=== PATIENT | female | born 1980 | race Caucasian/White ===

== ENCOUNTER 2018-11-12 00:33 | Emergency (ER) | payer OTHER ==
[~2018-11-12] VITALS: Ht 162.6 cm; Wt 88.6 kg
[2018-11-12 02:12] VITALS: BP 104/56
[2018-11-12 02:32] LABS: URINE AMPHETAMINE SCREEN NEGATIVE (Neg); URINE BARBITUATE SCREEN NEGATIVE (Neg); URINE BENZODIAZEPINES SCREEN POSITIVE (Neg); URINE CANNABINOID SCREEN NEGATIVE (Neg); URINE COCAINE SCREEN NEGATIVE (Neg); URINE METHADONE SCREEN NEGATIVE (Neg); URINE OPIATE SCREEN NEGATIVE (Neg); URINE PHENCYCLIDINE SCREEN NEGATIVE (Neg)
[2018-11-12] MEDS ORDERED: QUEtiapine 25mg tablet PO SCH (08:00)
== END 2018-11-12 03:03 | disposition home or self-care (01) ==
LOC: ER 00:36
DX: R45.4 Irritability and anger (principal); G43.909 Migraine, unspecified, not intractable, without status migrainosus; J45.909 Unspecified asthma, uncomplicated; G89.29 Other chronic pain; F41.9 Anxiety disorder, unspecified; F31.9 Bipolar disorder, unspecified; Z90.49 Acquired absence of other specified parts of digestive tract; Z98.51 Tubal ligation status; Z56.0 Unemployment, unspecified; Z88.0 Allergy status to penicillin; Z88.2 Allergy status to sulfonamides
CPT/HCPCS: 80305; 99284

== ENCOUNTER 2018-11-21 13:53 | Emergency (ER) | payer OTHER ==
[~2018-11-21] VITALS: Ht 162.6 cm; Wt 88.6 kg
[2018-11-21 14:41] LABS: BASOPHILS % (AUTO) 0.3 % (0-1); EOSINOPHILS # (AUTO) 0.2 X10'3 (0-0.9); EOSINOPHILS % (AUTO) 1.5 % (0-6); HEMATOCRIT 45.8 % (35.0-45.0); HEMOGLOBIN 15.1 g/dl (12.0-16.0); LYMPHOCYTES % (AUTO) 21.1 % (21-51); MEAN CORPUSCULAR VOLUME 87.9 FL (78-98); MEAN PLATELET VOLUME 8.1 FL (7.4-10.4); MONOCYTES # (AUTO) 0.7 X10'3 (0-0.9); MONOCYTES % (AUTO) 5.2 % (2-12); NEUTROPHILS # (AUTO) 10.1 X10'3 (1.8-7.7); NEUTROPHILS % (AUTO) 71.9 % (42-75); PLATELET COUNT 459 X10'3 (140-440); RED BLOOD COUNT 5.21 X10'6 (4.20-5.60); RED CELL DISTRIBUTION WIDTH 14.1 % (11.5-14.5); WHITE BLOOD COUNT 14.1 X10'3 (4.5-11.0)
[2018-11-21 14:59] LABS: PARTIAL THROMBOPLASTIN TIME 28 SECONDS (22-32); PROTHROMBIN TIME 10.4 SECONDS (9.0-12.0)
[2018-11-21 15:10] LABS: ALANINE AMINOTRANSFERASE 74 U/L (12-78); ALBUMIN 3.5 G/DL (3.4-5.0); ALBUMIN/GLOBULIN RATIO 0.9 (1.1-1.5); ALKALINE PHOSPHATASE 154 IU/L (46-116); ANION GAP 12 (8-16); ASPARTATE AMINO TRANSFERASE 48 U/L (10-37); BILIRUBIN,TOTAL 0.2 MG/DL (0.1-1.0); BLOOD UREA NITROGEN 12 MG/DL (7-18); BUN/CREATININE RATIO 17.4 (6.6-38.0); CALCIUM 8.5 MG/DL (8.5-10.1); CHLORIDE 103 MMOL/L (99-107); CREATININE 0.69 MG/DL (0.40-0.90); GLUCOSE 102 MG/DL (70-104); POTASSIUM 3.8 MMOL/L (3.5-5.1); SODIUM 139 MMOL/L (135-145); TOTAL CARBON DIOXIDE 23.7 MMOL/L (24-32); TOTAL PROTEIN 7.2 G/DL (6.4-8.2); eGFR > 90 ML/MIN
[2018-11-21] MEDS ORDERED: guaiFENesin/codeine phos 10ml UD oral syrup PO ONE (15:55)
[2018-11-21] MEDS ORDERED: ROBCFL PO (15:57)
[2018-11-21] MEDS ORDERED: BENZ-16 PO (15:57)
[2018-11-21 16:04] VITALS: BP 110/78
== END 2018-11-21 16:10 | disposition home or self-care (01) ==
LOC: ER 13:54
DX: M94.0 Chondrocostal junction syndrome [Tietze] (principal); G43.909 Migraine, unspecified, not intractable, without status migrainosus; J45.909 Unspecified asthma, uncomplicated; G89.29 Other chronic pain; Z90.49 Acquired absence of other specified parts of digestive tract; Z98.51 Tubal ligation status; Z88.0 Allergy status to penicillin; Z88.2 Allergy status to sulfonamides; Z79.899 Other long term (current) drug therapy; Z56.0 Unemployment, unspecified
CPT/HCPCS: 36415; 71045; 80053; 84484; 85025; 85610; 85730; 93005; 99284

== ENCOUNTER 2019-04-14 10:17 | Emergency (ER) | payer MEDICAID, OTHER ==
[~2019-04-14] VITALS: Ht 162.6 cm; Wt 95.9 kg
[~2019-04-14 10:17] MED LIST: PANT-47 PO; PHE12.5T PO
[2019-04-14 10:55] LABS: CLARITY,URINE SLIGHTLY CLOUDY (Clear); COLOR,URINE YELLOW (Yellow); GLUCOSE, URINE NEGATIVE (Neg); KETONES,URINE 15 mg/dl (Neg); LEUKOCYTE ESTERASE ,URINE NEGATIVE (Neg); NITRITES, URINE NEGATIVE (Neg); OCCULT BLOOD,URINE NEGATIVE (Neg); PROTEIN,URINE NEGATIVE (Neg); UROBILINOGEN,URINE 0.2 E.U/dL (0.2-1.0)
[2019-04-14] MEDS ORDERED: LORazepam 2 mg/ml vial IV ONE ×2 (10:55→13:35)
[2019-04-14] MEDS ORDERED: ondansetron/PF 4mg/2ml inj IV ONE (10:55)
[2019-04-14] MEDS ORDERED: normal saline 1000ML IV soln IVB ONE (10:55)
[2019-04-14] MEDS ORDERED: ketorolac trometh. 30mg/ml inj. IV ONE (10:55)
[2019-04-14 10:59] LABS: UA COLLECTION TYPE CLN CATCH MIDSTREAM; URINE HCG NEGATIVE (NEG)
[2019-04-14 11:03] LABS: BACTERIA,URINE 1+ /HPF (Neg); MUCUS STRANDS MANY /LPF (Neg); RBC,URINE 0-2 /HPF (0-2); SQUAMOUS EPITHELIAL CELL,UR MANY /LPF (FEW); URINE AMPHETAMINE SCREEN NEGATIVE (Neg); URINE BARBITUATE SCREEN NEGATIVE (Neg); URINE BENZODIAZEPINES SCREEN POSITIVE (Neg); URINE CANNABINOID SCREEN NEGATIVE (Neg); URINE COCAINE SCREEN NEGATIVE (Neg); URINE METHADONE SCREEN NEGATIVE (Neg); URINE OPIATE SCREEN NEGATIVE (Neg); URINE PHENCYCLIDINE SCREEN NEGATIVE (Neg); WBC,URINE 0-4 /HPF (0-4)
--- NOTE | 2019-04-14 11:27 | NUR ---
MEDS GIVEN, SCANNER NOT WORKING. IT WAS NOT CHARGED.
[2019-04-14 11:42] LABS: BASOPHILS % (AUTO) 0.2 % (0-1); EOSINOPHILS % (AUTO) 0.4 % (0-6); HEMATOCRIT 41.5 % (35.0-45.0); HEMOGLOBIN 13.9 g/dl (12.0-16.0); LYMPHOCYTES # (AUTO) 2.1 X10'3 (1.1-4.8); LYMPHOCYTES % (AUTO) 18.6 % (21-51); MEAN CORPUSCULAR HGB CONC 33.6 g/dL (33.0-36.5); MEAN CORPUSCULAR VOLUME 89.4 FL (78-98); MEAN PLATELET VOLUME 8.2 FL (7.4-10.4); MONOCYTES # (AUTO) 0.7 X10'3 (0-0.9); MONOCYTES % (AUTO) 6.1 % (2-12); NEUTROPHILS # (AUTO) 8.5 X10'3 (1.8-7.7); NEUTROPHILS % (AUTO) 74.7 % (42-75); PLATELET COUNT 317 X10'3 (140-440); RED BLOOD COUNT 4.64 X10'6 (4.20-5.60); RED CELL DISTRIBUTION WIDTH 13.3 % (11.5-14.5); WHITE BLOOD COUNT 11.3 X10'3 (4.5-11.0)
[2019-04-14 11:49] LABS: ALANINE AMINOTRANSFERASE 26 U/L (12-78); ALBUMIN 3.7 G/DL (3.4-5.0); ALBUMIN/GLOBULIN RATIO 1.1 (1.1-1.5); ALKALINE PHOSPHATASE 135 IU/L (46-116); ANION GAP 9 (8-16); ASPARTATE AMINO TRANSFERASE 22 U/L (10-37); BILIRUBIN,TOTAL 0.1 MG/DL (0.1-1.0); BLOOD UREA NITROGEN 5 MG/DL (7-18); BUN/CREATININE RATIO 7.4 (6.6-38.0); CALCIUM 8.7 MG/DL (8.5-10.1); CHLORIDE 107 MMOL/L (99-107); CREATININE 0.68 MG/DL (0.40-0.90); GLUCOSE 102 MG/DL (70-104); SODIUM 141 MMOL/L (135-145); TOTAL CARBON DIOXIDE 24.8 MMOL/L (24-32); TOTAL PROTEIN 7.1 G/DL (6.4-8.2); eGFR > 90 ML/MIN
[2019-04-14 12:02] LABS: ETHANOL < 0.010 GM/DL (0.0-0.010)
[2019-04-14] MEDS ORDERED: HYDR50TA65 PO (12:32)
[2019-04-14] MEDS ORDERED: CARB200T PO (12:32)
[2019-04-14] MEDS ORDERED: LORA1TAB PO (12:32)
[2019-04-14] MEDS ORDERED: VENL75TA90 PO (12:32)
[2019-04-14] MEDS ORDERED: DIAZ5TAB4 PO (12:32)
[2019-04-14] MEDS ORDERED: RANI150T8 PO (12:32)
[2019-04-14] MEDS ORDERED: NITR0.4T51 SL (12:32)
[2019-04-14] MEDS ORDERED: TRAZ-219 PO (12:32)
[2019-04-14] MEDS ORDERED: PANT20TA3 PO (12:32)
[2019-04-14] MEDS ORDERED: BACL10TA PO (12:32)
[2019-04-14] MEDS ORDERED: CLON-514 PO (12:32)
[2019-04-14] MEDS ORDERED: LORazepam 1 MG tablet PO PRN (13:25)
[2019-04-14] MEDS ORDERED: nitroGLYCERIN 0.4mg SUBLingual tab SL PRN (13:25)
[2019-04-14] MEDS ORDERED: clonazePAM 1mg tablet PO PRN (13:25)
[2019-04-14] MEDS ORDERED: diazepam 5mg tablet PO PRN (13:25)
[2019-04-14] MEDS ORDERED: SUMAtriptan succ. 6 MG/0.5ml vial SQ ONE (13:35)
[2019-04-14] MEDS ORDERED: metoclopramide 5 mg/ml inj IV ONE (13:35)
[2019-04-14] MEDS ORDERED: famotidine 20mg tablet PO ONE (14:40)
--- NOTE | 2019-04-14 14:54 | NUR ---
PT IS SLEEPING NOW, NO S/S OF DISTRESS.
[2019-04-14] MEDS ORDERED: hydrOXYzine 25 MG tablet PO PRN (16:00)
[2019-04-14] MEDS ORDERED: acetaminophen 325mg tablet PO ONE (19:45)
[2019-04-14] MEDS ORDERED: ondansetron 4mg rapidly disintigrating tab PO ONE (19:45)
--- NOTE | 2019-04-14 20:00 | NUR ---
AMANDEEP FROM [facility] IN [place] CALLED TO SAY DR. ESPARZA IS ACCEPTING HER TO [facility] NUMBER [phone]
[2019-04-14] MEDS ORDERED: traZODone 50mg tablet PO SCH (21:00)
[2019-04-14] MEDS: baclofen 10mg tablet PO SCH (21:20)
[2019-04-14] MEDS: carBAMazepine Ext. Release 200 MG TAB.ER.12H PO SCH (21:28)
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
--- NOTE | 2019-04-15 04:56 | NUR ---
Brooklyn from [facility] in [place] called requesting the patient's information. Not sure which place she will be placed.
--- NOTE | 2019-04-15 06:15 | NUR ---
Patient care transferred to Rehana DAVIDSON
[2019-04-15] MEDS ORDERED: pantoprazole 40mg Tablet.DR PO SCH (07:30)
[2019-04-15] MEDS ORDERED: venlafaxine XR 75mg capsule (Q24H) PO SCH (08:00)
[2019-04-15] MEDS: baclofen 10mg tablet PO SCH (08:16)
[2019-04-15] MEDS: carBAMazepine Ext. Release 200 MG TAB.ER.12H PO SCH (08:17)
[2019-04-15] MEDS ORDERED: LORazepam 1 MG tablet PO ONE (09:10)
[2019-04-15] MEDS ORDERED: mag hydrox/Alum hydrox/simeth 30ml oral suspension PO ONE (09:35)
[2019-04-15] MEDS ORDERED: ondansetron 4mg rapidly disintigrating tab PO ONE (09:35)
--- NOTE | 2019-04-15 09:45 | NUR ---
Pt c/o anxiety and stomach hurting from indigestion/acid. Pt given maalox and zofran, and ativan. Discussed reasons for being put on hold and precipitating events. Pt very tearful and angry at . able to calm down and rest.
[2019-04-15 12:29] VITALS: BP 124/78
--- NOTE | 2019-04-15 12:30 | NUR ---
Pt trnsfered to [facility] service car driver.
--- NOTE | 2019-04-15 12:37 | NUR ---
Pt received in bed resting w/o distress. Addendum: 04/15/19 at 1239 by DSALVATO Donita senior note for [id number].
== END 2019-04-15 12:30 ==
LOC: ER 10:17
DX: F31.9 Bipolar disorder, unspecified (principal); R45.851 Suicidal ideations; G43.909 Migraine, unspecified, not intractable, without status migrainosus; J45.909 Unspecified asthma, uncomplicated; G89.29 Other chronic pain; F41.9 Anxiety disorder, unspecified; Z56.0 Unemployment, unspecified; Z90.49 Acquired absence of other specified parts of digestive tract; Z98.51 Tubal ligation status; Z88.0 Allergy status to penicillin; Z88.2 Allergy status to sulfonamides; Z79.899 Other long term (current) drug therapy
CPT/HCPCS: 36415; 80053; 80305; 80320; 81001; 81025; 84443; 85025; 96372; 96374; 96375; 96376; 99284; J1885; J2060; J2405; J2765; J7030; J3030

== ENCOUNTER 2019-09-29 18:14 | Emergency (ER) | payer MEDICAID, OTHER ==
[~2019-09-29] VITALS: Ht 162.6 cm; Wt 87.7 kg
[~2019-09-29 18:14] MED LIST changes: +BACL10TA PO; +CARB200T PO; +CLON-514 PO; +DIAZ5TAB4 PO; +HYDR50TA65 PO; +LORA1TAB PO; +NITR0.4T51 SL; -PANT-47 PO; +PANT20TA3 PO; -PHE12.5T PO; +RANI150T8 PO; +TRAZ-219 PO; +VENL75TA90 PO
[2019-09-29 19:11] LABS: ALANINE AMINOTRANSFERASE 22 U/L (12-78); ALBUMIN 3.7 G/DL (3.4-5.0); ALKALINE PHOSPHATASE 153 IU/L (46-116); ANION GAP 10 (8-16); ASPARTATE AMINO TRANSFERASE 14 U/L (10-37); BILIRUBIN,TOTAL 0.3 MG/DL (0.1-1.0); BLOOD UREA NITROGEN 10 MG/DL (7-18); BUN/CREATININE RATIO 15.9 (6.6-38.0); CALCIUM 9.1 MG/DL (8.5-10.1); CHLORIDE 104 MMOL/L (99-107); CREATININE 0.63 MG/DL (0.40-0.90); GLUCOSE 101 MG/DL (70-104); POTASSIUM 3.7 MMOL/L (3.5-5.1); SODIUM 139 MMOL/L (135-145); TOTAL CARBON DIOXIDE 24.8 MMOL/L (24-32); TOTAL PROTEIN 7.5 G/DL (6.4-8.2); eGFR > 90 ML/MIN
[2019-09-29 19:14] LABS: BASOPHILS # (AUTO) 0.1 X10'3 (0-0.2); BASOPHILS % (AUTO) 0.4 % (0-1); EOSINOPHILS # (AUTO) 0.1 X10'3 (0-0.9); EOSINOPHILS % (AUTO) 0.7 % (0-6); HEMATOCRIT 43.5 % (35.0-45.0); HEMOGLOBIN 14.7 g/dl (12.0-16.0); LYMPHOCYTES # (AUTO) 3.2 X10'3 (1.1-4.8); LYMPHOCYTES % (AUTO) 22.8 % (21-51); MEAN CORPUSCULAR HEMOGLOBIN 29.9 PG (27.0-31.0); MEAN CORPUSCULAR HGB CONC 33.8 g/dL (33.0-36.5); MEAN CORPUSCULAR VOLUME 88.3 FL (78-98); MEAN PLATELET VOLUME 7.7 FL (7.4-10.4); MONOCYTES # (AUTO) 0.9 X10'3 (0-0.9); MONOCYTES % (AUTO) 6.3 % (2-12); NEUTROPHILS # (AUTO) 9.7 X10'3 (1.8-7.7); NEUTROPHILS % (AUTO) 69.8 % (42-75); PLATELET COUNT 354 X10'3 (140-440); RED BLOOD COUNT 4.92 X10'6 (4.20-5.60); RED CELL DISTRIBUTION WIDTH 13.1 % (11.5-14.5)
[2019-09-29 19:16] LABS: TROPONIN I < 0.04 NG/ML (0.0-0.05)
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
[2019-09-29] MEDS ORDERED: LORazepam 2 mg/ml vial IV ONE (20:50)
[2019-09-29] MEDS ORDERED: haloperidol lactate 5mg/ml inj IM ONE (20:50)
[2019-09-29] MEDS ORDERED: ATEN25TA PO (22:36)
[2019-09-29 22:59] VITALS: BP 112/75
== END 2019-09-29 22:55 | disposition home or self-care (01) ==
LOC: ER 18:14
DX: G43.909 Migraine, unspecified, not intractable, without status migrainosus (principal); F41.0 Panic disorder [episodic paroxysmal anxiety]; R00.0 Tachycardia, unspecified; J45.909 Unspecified asthma, uncomplicated; G89.29 Other chronic pain; F31.9 Bipolar disorder, unspecified; Z90.49 Acquired absence of other specified parts of digestive tract; Z98.51 Tubal ligation status; Z56.0 Unemployment, unspecified; Z88.0 Allergy status to penicillin; Z88.2 Allergy status to sulfonamides; Z79.899 Other long term (current) drug therapy
CPT/HCPCS: 36415; 71045; 80053; 84484; 85025; 93005; 96372; 96374; 99284; J1630; J2060

== ENCOUNTER 2019-11-14 12:08 | Emergency (ER) | payer OTHER, MEDICAID ==
[~2019-11-14] VITALS: Ht 162.6 cm; Wt 84.0 kg
[~2019-11-14 12:08] MED LIST changes: +ATEN25TA PO
[2019-11-14 12:15] VITALS: BP 132/69
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
[2019-11-14] MEDS ORDERED: DOXY100C43 PO (16:52)
[2019-11-14] MEDS ORDERED: ONDA8TAB6 PO (16:52)
[2019-11-14] MEDS ORDERED: HYDR-3686 PO (18:50)
== END 2019-11-14 13:37 | disposition left against medical advice (07) ==
LOC: EEVIPCON 12:08 → ER 12:08
DX: Z00.8 Encounter for other general examination (principal); Z53.21 Procedure and treatment not carried out due to patient leaving prior to being seen by health care provider

== ENCOUNTER 2019-11-14 15:55 | Emergency (ER) | payer OTHER, MEDICAID ==
[~2019-11-14] VITALS: Ht 162.6 cm; Wt 84.0 kg
[2019-11-14 16:21] VITALS: BP 114/74
[2019-11-14] MEDS ORDERED: ONDA8TAB6 PO (16:52)
[2019-11-14] MEDS ORDERED: DOXY100C43 PO (16:52)
[2019-11-14] MEDS ORDERED: azithromycin 250mg tablet PO ONE (17:00)
[2019-11-14] MEDS ORDERED: metroNIDAZOLE 500mg tablet PO ONE (17:00)
[2019-11-14] MEDS ORDERED: fluconazole 100mg tablet PO ONE (18:50)
[2019-11-14] MEDS ORDERED: LORazepam 1 MG tablet PO ONE (18:50)
[2019-11-14] MEDS ORDERED: HYDR-3686 PO (18:50)
--- NOTE | 2019-11-14 18:53 | NUR ---
1835-Called lab to find the status of the UA that was sent. They report that they do not have it. 184-Dr. Mccollum in room for medical screening exam. Discussed the lack of test. Patient reported having tubal ligation. Per Dr. Mccollum patient is ok to not have test at this time and to follow up with her doctor. Discussed rash to buttocks and patient anxiety and request for something to help her sleep. MD to write orders.
[2019-11-14 19:08] LABS: URINE HCG NEGATIVE (NEG)
== END 2019-11-14 19:31 | disposition home or self-care (01) ==
LOC: EEVIPCON 15:55 → ER 15:55
DX: T74.21XA Adult sexual abuse, confirmed, initial encounter (principal); G43.909 Migraine, unspecified, not intractable, without status migrainosus; J45.909 Unspecified asthma, uncomplicated; G89.29 Other chronic pain; Z56.0 Unemployment, unspecified; Z90.49 Acquired absence of other specified parts of digestive tract; Z98.51 Tubal ligation status; Z88.0 Allergy status to penicillin; Z88.2 Allergy status to sulfonamides; Z79.899 Other long term (current) drug therapy; Y07.9 Unspecified perpetrator of maltreatment and neglect
CPT/HCPCS: 81025; 99284; J3490

== ENCOUNTER 2019-11-16 13:22 | Emergency (ER) | payer OTHER, MEDICAID ==
[~2019-11-16] VITALS: Ht 162.6 cm; Wt 84.1 kg
[~2019-11-16 13:22] MED LIST changes: +DOXY100C43 PO; +HYDR-3686 PO; +ONDA8TAB6 PO
[2019-11-16 13:30] VITALS: BP 110/70
[2019-11-16 14:11] LABS: BASOPHILS % (AUTO) 0.4 % (0-1); EOSINOPHILS # (AUTO) 0.2 X10'3 (0-0.9); EOSINOPHILS % (AUTO) 1.3 % (0-6); HEMATOCRIT 41.6 % (35.0-45.0); LYMPHOCYTES % (AUTO) 21.8 % (21-51); MEAN CORPUSCULAR HEMOGLOBIN 30.3 PG (27.0-31.0); MEAN CORPUSCULAR HGB CONC 33.6 g/dL (33.0-36.5); MEAN PLATELET VOLUME 8.3 FL (7.4-10.4); MONOCYTES % (AUTO) 7.1 % (2-12); NEUTROPHILS # (AUTO) 9.6 X10'3 (1.8-7.7); NEUTROPHILS % (AUTO) 69.4 % (42-75); PLATELET COUNT 341 X10'3 (140-440); RED BLOOD COUNT 4.63 X10'6 (4.20-5.60); RED CELL DISTRIBUTION WIDTH 14.2 % (11.5-14.5); WHITE BLOOD COUNT 13.8 X10'3 (4.5-11.0)
[2019-11-16 14:47] LABS: ALANINE AMINOTRANSFERASE 54 U/L (12-78); ALBUMIN 3.7 G/DL (3.4-5.0); ALBUMIN/GLOBULIN RATIO 1.2 (1.1-1.5); ALKALINE PHOSPHATASE 124 IU/L (46-116); ANION GAP 8 (8-16); ASPARTATE AMINO TRANSFERASE 26 U/L (10-37); BILIRUBIN,TOTAL 0.3 MG/DL (0.1-1.0); BLOOD UREA NITROGEN 9 MG/DL (7-18); BUN/CREATININE RATIO 12.2 (6.6-38.0); CALCIUM 8.5 MG/DL (8.5-10.1); CHLORIDE 108 MMOL/L (99-107); CREATININE 0.74 MG/DL (0.40-0.90); GLUCOSE 93 MG/DL (70-104); POTASSIUM 3.9 MMOL/L (3.5-5.1); SODIUM 142 MMOL/L (135-145); TOTAL CARBON DIOXIDE 25.6 MMOL/L (24-32); TOTAL PROTEIN 6.8 G/DL (6.4-8.2); eGFR 87 ML/MIN
--- NOTE | 2019-11-16 17:51 | NUR ---
ATTEMPTED TO CALL PT MULTIPLE TIMES. PT LEFT AND RETURNED AFTER @ 30 MINUTES 3X. NOT IN LOBBY NOW. TAKING OFF TRACKER AND PT WILL HAVE TO BE RE-TRIAGED IF RETURNS.
== END 2019-11-16 17:54 | disposition left against medical advice (07) ==
LOC: ER 13:22
DX: R07.89 Other chest pain (principal); Z53.21 Procedure and treatment not carried out due to patient leaving prior to being seen by health care provider
CPT/HCPCS: 36415; 71045; 80053; 84484; 85025

== ENCOUNTER 2021-03-08 09:46 | Emergency (ER) | payer OTHER, MEDICAID ==
[~2021-03-08] VITALS: Ht 162.6 cm; Wt 90.9 kg
[~2021-03-08 09:46] MED LIST changes: -CLON-514 PO; +CLON1TAB96 PO; -DOXY100C43 PO; -HYDR-3686 PO; +PANT20TA18 PO; -PANT20TA3 PO; -TRAZ-219 PO; +TRAZ-256 PO
[2021-03-08 10:27] LABS: BASOPHILS # (AUTO) 0.1 X10'3 (0-0.2); BASOPHILS % (AUTO) 1.3 % (0-1); EOSINOPHILS # (AUTO) 0.1 X10'3 (0-0.9); EOSINOPHILS % (AUTO) 1.3 % (0-6); HEMATOCRIT 39.1 % (35.0-45.0); HEMOGLOBIN 13.2 g/dl (12.0-16.0); LYMPHOCYTES # (AUTO) 2.4 X10'3 (1.1-4.8); LYMPHOCYTES % (AUTO) 23.1 % (21-51); MEAN CORPUSCULAR HEMOGLOBIN 30.6 PG (27.0-31.0); MEAN CORPUSCULAR HGB CONC 33.9 g/dL (33.0-36.5); MEAN CORPUSCULAR VOLUME 90.5 FL (78-98); MEAN PLATELET VOLUME 7.8 FL (7.4-10.4); MONOCYTES # (AUTO) 0.5 X10'3 (0-0.9); MONOCYTES % (AUTO) 4.9 % (2-12); NEUTROPHILS # (AUTO) 7.1 X10'3 (1.8-7.7); NEUTROPHILS % (AUTO) 69.4 % (42-75); PLATELET COUNT 341 X10'3 (140-440); RED BLOOD COUNT 4.32 X10'6 (4.20-5.60); RED CELL DISTRIBUTION WIDTH 14.1 % (11.5-14.5); WHITE BLOOD COUNT 10.2 X10'3 (4.5-11.0)
[2021-03-08 10:51] LABS: ALANINE AMINOTRANSFERASE 27 U/L (12-78); ALBUMIN 3.4 G/DL (3.4-5.0); ALKALINE PHOSPHATASE 137 IU/L (46-116); ANION GAP 15 (8-16); ASPARTATE AMINO TRANSFERASE 18 U/L (10-37); BILIRUBIN,TOTAL 0.2 MG/DL (0.1-1.0); BLOOD UREA NITROGEN 11 MG/DL (7-18); BUN/CREATININE RATIO 15.9 (6.6-38.0); CALCIUM 8.1 MG/DL (8.5-10.1); CHLORIDE 107 MMOL/L (99-107); CREATININE 0.69 MG/DL (0.40-0.90); GLUCOSE 155 MG/DL (70-104); POTASSIUM 3.8 MMOL/L (3.5-5.1); SODIUM 144 MMOL/L (135-145); TOTAL CARBON DIOXIDE 22.2 MMOL/L (24-32); TOTAL PROTEIN 6.8 G/DL (6.4-8.2); TROPONIN I < 0.04 NG/ML (0.0-0.05); eGFR > 90 ML/MIN
[2021-03-08] MEDS ORDERED: HYDROcodone/acetaminophen 5mg/325mg tablet PO ONE (12:20)
[2021-03-08] MEDS ORDERED: ketorolac tromethamine 15mg/ml inj. IM ONE (12:20)
[2021-03-08] MEDS ORDERED: HYDR-3965 PO (12:24)
[2021-03-08 12:26] VITALS: BP 125/75
== END 2021-03-08 12:49 | disposition home or self-care (01) ==
LOC: ER 09:46
DX: M94.0 Chondrocostal junction syndrome [Tietze] (principal); G43.909 Migraine, unspecified, not intractable, without status migrainosus; J45.909 Unspecified asthma, uncomplicated; G89.29 Other chronic pain; F41.9 Anxiety disorder, unspecified; F31.9 Bipolar disorder, unspecified; Z86.69 Personal history of other diseases of the nervous system and sense organs; Z90.49 Acquired absence of other specified parts of digestive tract; Z98.51 Tubal ligation status; Z56.0 Unemployment, unspecified; Z88.0 Allergy status to penicillin; Z88.2 Allergy status to sulfonamides; Z79.899 Other long term (current) drug therapy
CPT/HCPCS: 36415; 71045; 80053; 84484; 85025; 93005; 96372; 99285; J1885

== ENCOUNTER 2021-03-13 09:04 | Observation (INO) | payer OTHER, MEDICAID ==
[~2021-03-13] VITALS: Ht 162.6 cm; Wt 90.9 kg
[~2021-03-13 09:04] MED LIST changes: +HYDR-3965 PO
--- NOTE | 2021-03-13 09:37 | NUR ---
PATIENT TO ER WITH C/O UPPER CHEST PAIN FOR THE PAST FEW MONTHS. STATES THAT SHE WAS HERE 5 DAYS AGO WITH C/O PAIN, POSSIBLE COSTOCHONDRITIS. STATES SHE WAS REFERRED TO COME TO ER BY DR. MUSA'S OFFICE. REPORTS INTERMITTENT TINGLING ACROSS UPPER CHEST. NSR ON REVENUE ENFORCEMENT AGENT.
[2021-03-13] MEDS ORDERED: ondansetron/PF 4mg/2ml inj IV ONE ×2 (11:05→13:45)
[2021-03-13] MEDS ORDERED: morphine 4 MG/ML inj SYRINge IV ONE (11:05)
[2021-03-13] MEDS ORDERED: nitroGLYCERIN 0.4mg SUBLingual tab SL PRN ×2 (11:05→14:20)
[2021-03-13 11:31] LABS: BASOPHILS # (AUTO) 0.1 X10'3 (0-0.2); BASOPHILS % (AUTO) 0.5 % (0-1); EOSINOPHILS # (AUTO) 0.1 X10'3 (0-0.9); EOSINOPHILS % (AUTO) 1.5 % (0-6); HEMATOCRIT 42.6 % (35.0-45.0); HEMOGLOBIN 14.2 g/dl (12.0-16.0); LYMPHOCYTES # (AUTO) 2.7 X10'3 (1.1-4.8); LYMPHOCYTES % (AUTO) 26.6 % (21-51); MEAN CORPUSCULAR HEMOGLOBIN 30.2 PG (27.0-31.0); MEAN CORPUSCULAR HGB CONC 33.4 g/dL (33.0-36.5); MEAN CORPUSCULAR VOLUME 90.4 FL (78-98); MONOCYTES # (AUTO) 0.7 X10'3 (0-0.9); MONOCYTES % (AUTO) 7.4 % (2-12); NEUTROPHILS # (AUTO) 6.5 X10'3 (1.8-7.7); PLATELET COUNT 320 X10'3 (140-440); RED BLOOD COUNT 4.71 X10'6 (4.20-5.60); WHITE BLOOD COUNT 10.1 X10'3 (4.5-11.0)
[2021-03-13 11:46] LABS: ALANINE AMINOTRANSFERASE 20 U/L (12-78); ALBUMIN 3.4 G/DL (3.4-5.0); ALKALINE PHOSPHATASE 137 IU/L (46-116); ANION GAP 10 (8-16); ASPARTATE AMINO TRANSFERASE 14 U/L (10-37); BILIRUBIN,TOTAL 0.1 MG/DL (0.1-1.0); BLOOD UREA NITROGEN 11 MG/DL (7-18); CALCIUM 8.3 MG/DL (8.5-10.1); CHLORIDE 108 MMOL/L (99-107); CREATININE 0.58 MG/DL (0.40-0.90); GLUCOSE 105 MG/DL (70-104); POTASSIUM 4.4 MMOL/L (3.5-5.1); SODIUM 143 MMOL/L (135-145); TOTAL CARBON DIOXIDE 25.5 MMOL/L (24-32); TOTAL PROTEIN 6.8 G/DL (6.4-8.2); eGFR > 90 ML/MIN
[2021-03-13 11:52] LABS: MAGNESIUM 2.4 MG/DL (1.5-2.4)
[2021-03-13] MEDS ORDERED: ZALE10CA PO (12:49)
[2021-03-13] MEDS ORDERED: QUET25TA PO (12:49)
[2021-03-13] MEDS ORDERED: SUMA6PEN9 SQ (12:49)
[2021-03-13] MEDS ORDERED: QUET100T33 PO (12:49)
[2021-03-13] MEDS ORDERED: CARB200T40 PO (12:49)
[2021-03-13] MEDS ORDERED: GUAN1TAB PO (12:49)
--- NOTE | 2021-03-13 12:50 | NUR ---
UP TO BATHROOM WITH STEADY GAIT.
[2021-03-13] MEDS ORDERED: ATEN25TA2 PO (13:24)
[2021-03-13] MEDS ORDERED: LOVA20TA2 PO (13:24)
[2021-03-13] MEDS ORDERED: ASPI-611 PO (13:31)
[2021-03-13] MEDS ORDERED: ONDA4TAB6 SL (13:31)
[2021-03-13] MEDS ORDERED: PROC10TA10 PO (13:31)
[2021-03-13] MEDS ORDERED: CALC500T11 PO (13:31)
[2021-03-13] MEDS ORDERED: DICY10CA88 PO (13:31)
[2021-03-13] MEDS ORDERED: LOPE2CAP PO (13:31)
[2021-03-13] MEDS ORDERED: PHEN95TA27 PO (13:31)
[2021-03-13] MEDS ORDERED: magnesium 2GM in 50ml NS 50 ML IV PRN (13:50)
[2021-03-13] MEDS ORDERED: potassium Cl 40MEQ/1/2NS 520ml 520 ML IV PRN ×2 (13:50)
[2021-03-13] MEDS ORDERED: acetaminophen 325mg tablet PO PRN (13:50)
[2021-03-13] MEDS ORDERED: magnesium Cl slow-release 64mg tablet PO PRN (13:50)
[2021-03-13] MEDS ORDERED: magnesium 4gm in 100ml NS 100 ML IV PRN (13:50)
[2021-03-13] MEDS ORDERED: morphine 2 MG/ML inj. syringe IV PRN (13:50)
[2021-03-13] MEDS ORDERED: ondansetron/PF 4mg/2ml inj IV PRN (13:50)
[2021-03-13] MEDS ORDERED: potassium Cl 20 mEq SR tablet PO PRN ×2 (13:50)
[2021-03-13] MEDS ORDERED: metoprolol tartrate 1mg/ml inj IV PRN (14:20)
[2021-03-13] MEDS ORDERED: regadenoson 0.4mg/5ml syringe IV ONE (14:20)
[2021-03-13] MEDS ORDERED: aminophylline 250mg/10ml inj. IV PRN (14:20)
[2021-03-13 17:54] VITALS: BP 107/65
--- NOTE | 2021-03-13 17:55 | NUR ---
Patient arrived to the floor was oriented to room and call light in place vitals taken and will report to next RN
[2021-03-13] MEDS ORDERED: calcium carbonate 500mg chew tablet PO PRN (18:00)
[2021-03-13] MEDS ORDERED: SUMAtriptan succ. 6 MG/0.5ml vial SQ PRN (18:00)
[2021-03-13] MEDS ORDERED: proCHLORperazine 10mg tablet PO PRN (18:00)
[2021-03-13] MEDS ORDERED: atenolol 25mg tablet PO PRN (18:00)
[2021-03-13] MEDS ORDERED: ondansetron 4mg rapidly disintigrating tab PO PRN (18:00)
[2021-03-13] MEDS ORDERED: LORazepam 0.5 MG tablet PO PRN (18:00)
[2021-03-13] MEDS ORDERED: loperamide 2mg capsule PO PRN (18:00)
[2021-03-13] MEDS ORDERED: baclofen 10mg tablet PO PRN (18:00)
[2021-03-13] MEDS ORDERED: zolpidem 5mg tablet PO PRN (18:00)
[2021-03-13 18:30] VITALS: BP 108/71
--- NOTE | 2021-03-13 18:35 | NUR ---
Problems reprioritized. Patient report given, questions answered & plan of care reviewed with Jarett DAVIDSON.
[2021-03-13] MEDS: K and/or MAG REPLACEMENT MC SCH (20:00)
[2021-03-13] MEDS: venlafaxine XR 75mg capsule (Q24H) PO SCH (20:33)
[2021-03-13] MEDS: aspirin 81mg tablet.DR PO SCH (20:34)
[2021-03-13] MEDS ORDERED: temazepam 15mg capsule PO PRN (21:00)
[2021-03-13] MEDS: guanFACINE 1 mg tablet PO SCH (21:47)
[2021-03-13] MEDS: carBAMazepine 100mg chewable tablet PO SCH (21:48)
[2021-03-13 22:00] VITALS: BP 108/61
[2021-03-13] MEDS ORDERED: LIDOcaine/PRILOcaine 5gm cream TP ONE (22:15)
[2021-03-14] VITALS (14 sets, daily range): BP systolic 101–127; BP diastolic 61–77
[2021-03-14] MEDS ORDERED: pantoprazole 40mg Tablet.DR PO ONE (00:15)
[2021-03-14] MEDS ORDERED: pneumococcal 23-VAL P-sac vacc 25 mcg/0.5ml vial IMVAC ONE (05:00)
[2021-03-14] MEDS ORDERED: FLU VACC QS2020-21(6MOS UP)/PF 60 MCG/0.5 ML SYRINGE IMVAC ONE (05:00)
--- NOTE | 2021-03-14 05:00 | NUR ---
Groins & wrists & forearms hair clipped & skin wiped with Chlorhexidine wipes.
[2021-03-14 05:54] LABS: BASOPHILS % (AUTO) 0.5 % (0-1); EOSINOPHILS # (AUTO) 0.2 X10'3 (0-0.9); EOSINOPHILS % (AUTO) 2.7 % (0-6); HEMATOCRIT 43.4 % (35.0-45.0); HEMOGLOBIN 14.4 g/dl (12.0-16.0); LYMPHOCYTES # (AUTO) 2.6 X10'3 (1.1-4.8); MEAN CORPUSCULAR HEMOGLOBIN 30.5 PG (27.0-31.0); MEAN CORPUSCULAR HGB CONC 33.2 g/dL (33.0-36.5); MEAN CORPUSCULAR VOLUME 91.7 FL (78-98); MEAN PLATELET VOLUME 8.7 FL (7.4-10.4); MONOCYTES # (AUTO) 0.7 X10'3 (0-0.9); MONOCYTES % (AUTO) 8.3 % (2-12); NEUTROPHILS # (AUTO) 4.3 X10'3 (1.8-7.7); NEUTROPHILS % (AUTO) 55.5 % (42-75); PLATELET COUNT 382 X10'3 (140-440); RED BLOOD COUNT 4.73 X10'6 (4.20-5.60); WHITE BLOOD COUNT 7.8 X10'3 (4.5-11.0)
--- NOTE | 2021-03-14 06:00 | NUR ---
Problems reprioritized. Patient report given, questions answered & plan of care reviewed with Thuy. Addendum: 03/14/21 at 0654 by Chacorta Kimble RN Amended: Links added.
[2021-03-14 06:11] LABS: ALBUMIN 3.5 G/DL (3.4-5.0); ANION GAP 10 (8-16); BLOOD UREA NITROGEN 12 MG/DL (7-18); BUN/CREATININE RATIO 18.5 (6.6-38.0); CALCIUM 8.5 MG/DL (8.5-10.1); CHLORIDE 105 MMOL/L (99-107); CREATININE 0.65 MG/DL (0.40-0.90); GLUCOSE 108 MG/DL (70-104); MAGNESIUM 2.5 MG/DL (1.5-2.4); SODIUM 143 MMOL/L (135-145); TOTAL CARBON DIOXIDE 27.6 MMOL/L (24-32); eGFR > 90 ML/MIN
[2021-03-14 07:14] LABS: POTASSIUM 4.5 MMOL/L (3.5-5.1)
--- NOTE | 2021-03-14 07:38 | NUR ---
Patient in room MED 311. I have received report from Jarett DAVIDSON and had the opportunity to ask questions and assume patient care.
[2021-03-14] MEDS: PHENAZOPYRIDINE 95 MG PO SCH ×3 (08:00→16:00)
[2021-03-14] MEDS: K and/or MAG REPLACEMENT MC SCH ×2 (08:00→20:00)
[2021-03-14] MEDS: pantoprazole 40mg Tablet.DR PO SCH ×2 (09:33→20:40)
[2021-03-14] MEDS: aspirin 81mg tablet.DR PO SCH ×2 (09:33→20:39)
[2021-03-14] MEDS: atorvastatin 10mg tablet PO SCH (09:33)
[2021-03-14] MEDS: carBAMazepine 100mg chewable tablet PO SCH ×2 (09:35→20:44)
[2021-03-14] MEDS ORDERED: nitroGLYCERIN-Tridil 50MG/D5W 250 ML IV ONE (10:31)
[2021-03-14] MEDS ORDERED: verapamil 2.5 mg/ml inj IV ONE (10:31)
[2021-03-14] MEDS ORDERED: iohexol 350 MG/ML 50ML vial IV ONE (10:32)
[2021-03-14] MEDS ORDERED: midazolam 1 mg/ML 2ml injection ONE ×3 (10:32→11:29)
[2021-03-14] MEDS ORDERED: iohexol 350MG/ML 100ml bottle IV ONE (10:32)
[2021-03-14] MEDS ORDERED: fentaNYL/PF 50MCG/1 ML 2ML syringe ONE (10:32)
[2021-03-14] MEDS ORDERED: heparin 1,000unit/ml 10ml vial 10 ML ONE (10:32)
[2021-03-14] MEDS ORDERED: LIDOcaine 1% (10mg/ml)w/preservative injection 20ml MDV ONE (10:32)
[2021-03-14] MEDS: normal saline 1000ml 1,000 ML IV SCH ×4 (12:40→22:33)
[2021-03-14] MEDS ORDERED: dicyclomine 10 MG capsule PO PRN (12:45)
[2021-03-14] MEDS: HYDROcodone/acetaminophen 10/325mg tab PO PRN ×3 (13:08→21:29)
--- NOTE | 2021-03-14 18:00 | NUR ---
Patient in room MED 311. I have received report from STUART Baumann and had the opportunity to ask questions and assume patient care.
[2021-03-14 18:03] LABS: BASOPHILS % (AUTO) 0.3 % (0-1); EOSINOPHILS # (AUTO) 0.2 X10'3 (0-0.9); EOSINOPHILS % (AUTO) 1.7 % (0-6); HEMATOCRIT 41.4 % (35.0-45.0); HEMOGLOBIN 13.9 g/dl (12.0-16.0); LYMPHOCYTES # (AUTO) 2.6 X10'3 (1.1-4.8); LYMPHOCYTES % (AUTO) 25.9 % (21-51); MEAN CORPUSCULAR HEMOGLOBIN 30.3 PG (27.0-31.0); MEAN CORPUSCULAR HGB CONC 33.5 g/dL (33.0-36.5); MEAN CORPUSCULAR VOLUME 90.5 FL (78-98); MONOCYTES # (AUTO) 0.6 X10'3 (0-0.9); MONOCYTES % (AUTO) 6.2 % (2-12); NEUTROPHILS # (AUTO) 6.6 X10'3 (1.8-7.7); NEUTROPHILS % (AUTO) 65.9 % (42-75); PLATELET COUNT 321 X10'3 (140-440); RED BLOOD COUNT 4.58 X10'6 (4.20-5.60); RED CELL DISTRIBUTION WIDTH 13.6 % (11.5-14.5)
[2021-03-14 18:10] LABS: ALBUMIN 3.2 G/DL (3.4-5.0); ANION GAP 10 (8-16); BLOOD UREA NITROGEN 11 MG/DL (7-18); CALCIUM 8.4 MG/DL (8.5-10.1); CHLORIDE 108 MMOL/L (99-107); CREATININE 0.61 MG/DL (0.40-0.90); GLUCOSE 136 MG/DL (70-104); POTASSIUM 3.6 MMOL/L (3.5-5.1); SODIUM 142 MMOL/L (135-145); TOTAL CARBON DIOXIDE 24.4 MMOL/L (24-32); eGFR > 90 ML/MIN
--- NOTE | 2021-03-14 18:31 | NUR ---
Problems reprioritized. Patient report given, questions answered & plan of care reviewed with Desire DAVIDSON. Patient stable at transfer of care.
--- NOTE | 2021-03-14 19:44 | NUR ---
Called Dr. Foley regarding pt wants to go AMA. Dr. Foley wants to defer to hospitalist
--- NOTE | 2021-03-14 19:45 | NUR ---
Called Dr. Blood, he provided PRN ativan 1 mg x1
[2021-03-14] MEDS: venlafaxine XR 75mg capsule (Q24H) PO SCH (20:40)
[2021-03-14] MEDS: guanFACINE 1 mg tablet PO SCH (20:45)
--- NOTE | 2021-03-14 21:00 | NUR ---
Pt appeared to be in better mood. She was emotionally labile, crying one minute and laughing the next.
[2021-03-15] MEDS: HYDROcodone/acetaminophen 5mg/325mg tablet PO PRN ×2 (01:33→11:06)
[2021-03-15] MEDS: normal saline 1000ml 1,000 ML IV SCH (04:46)
--- NOTE | 2021-03-15 06:00 | NUR ---
Problems reprioritized. Patient report given, questions answered & plan of care reviewed with Gabbi RN.
[2021-03-15 06:30] VITALS: BP 111/63
[2021-03-15 07:30] LABS: BASOPHILS % (AUTO) 0.4 % (0-1); EOSINOPHILS # (AUTO) 0.1 X10'3 (0-0.9); HEMATOCRIT 39.2 % (35.0-45.0); HEMOGLOBIN 13.1 g/dl (12.0-16.0); LYMPHOCYTES # (AUTO) 1.9 X10'3 (1.1-4.8); LYMPHOCYTES % (AUTO) 30.9 % (21-51); MEAN CORPUSCULAR HEMOGLOBIN 30.3 PG (27.0-31.0); MEAN CORPUSCULAR HGB CONC 33.5 g/dL (33.0-36.5); MEAN CORPUSCULAR VOLUME 90.7 FL (78-98); MONOCYTES # (AUTO) 0.6 X10'3 (0-0.9); NEUTROPHILS # (AUTO) 3.4 X10'3 (1.8-7.7); NEUTROPHILS % (AUTO) 56.7 % (42-75); PLATELET COUNT 292 X10'3 (140-440); RED BLOOD COUNT 4.32 X10'6 (4.20-5.60); RED CELL DISTRIBUTION WIDTH 13.6 % (11.5-14.5); WHITE BLOOD COUNT 6.1 X10'3 (4.5-11.0)
[2021-03-15 07:54] LABS: ALBUMIN 3.1 G/DL (3.4-5.0); ANION GAP 9 (8-16); BLOOD UREA NITROGEN 14 MG/DL (7-18); CALCIUM 8.5 MG/DL (8.5-10.1); CHLORIDE 107 MMOL/L (99-107); CHOL/HDL RATIO 3.8 (0.00-4.99); CHOLESTEROL 176 MG/DL (0-200); CREATININE 0.61 MG/DL (0.40-0.90); GLUCOSE 114 MG/DL (70-104); HDL CHOLESTEROL 46 MG/DL (35-60); LDL CHOLESTEROL 105 MG/DL (50-100); MAGNESIUM 2.1 MG/DL (1.5-2.4); POTASSIUM 4.4 MMOL/L (3.5-5.1); SODIUM 143 MMOL/L (135-145); TOTAL CARBON DIOXIDE 27.4 MMOL/L (24-32); TRIGLYCERIDES 93 MG/DL (20-135); eGFR > 90 ML/MIN
[2021-03-15] MEDS: aspirin 81mg tablet.DR PO SCH (08:00)
[2021-03-15] MEDS: PHENAZOPYRIDINE 95 MG PO SCH ×2 (08:00)
[2021-03-15] MEDS: atorvastatin 10mg tablet PO SCH (10:32)
[2021-03-15] MEDS: pantoprazole 40mg Tablet.DR PO SCH (11:06)
[2021-03-15] MEDS: carBAMazepine 100mg chewable tablet PO SCH (11:07)
[2021-03-15 11:30] VITALS: BP 102/63
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
== END 2021-03-15 13:20 | disposition home or self-care (01) ==
LOC: ER 09:04 → ED HOLD 13:50 → MED 3N 17:42
PROVIDERS: ADMIT Internal Medicine; ATTEND Internal Medicine
DX: I20.9 Angina pectoris, unspecified (principal); R94.31 Abnormal electrocardiogram [ECG] [EKG]; E78.5 Hyperlipidemia, unspecified; F31.9 Bipolar disorder, unspecified; K21.9 Gastro-esophageal reflux disease without esophagitis; G40.909 Epilepsy, unspecified, not intractable, without status epilepticus; G89.29 Other chronic pain; K58.9 Irritable bowel syndrome, unspecified; J45.909 Unspecified asthma, uncomplicated; F41.9 Anxiety disorder, unspecified; G43.909 Migraine, unspecified, not intractable, without status migrainosus; E78.00 Pure hypercholesterolemia, unspecified; F12.90 Cannabis use, unspecified, uncomplicated; F17.210 Nicotine dependence, cigarettes, uncomplicated; Z79.899 Other long term (current) drug therapy; Z88.0 Allergy status to penicillin; Z88.2 Allergy status to sulfonamides; Z91.048 Other nonmedicinal substance allergy status
CPT/HCPCS: 36415; 71045; 76937; 80048; 80053; 80061; 83735; 83880; 84484; 85025; 87081; 93005; 93458; 96361; 96374; 96375; 96376; 99285; 99407; C1760; C1769; C1894; G0378; J1644; J2001; J2250; J2270; J2405; J3010; J7030; Q9967; 99152; 99153; A4620; A5120; J3490

== ENCOUNTER 2021-10-23 13:17 | Emergency (ER) | payer OTHER, MEDICAID ==
[~2021-10-23] VITALS: Ht 162.6 cm; Wt 89.5 kg
[~2021-10-23 13:17] MED LIST changes: +ASPI-611 PO; -ATEN25TA PO; +ATEN25TA2 PO; +CALC500T11 PO; -CARB200T PO; +CARB200T40 PO; -CLON1TAB96 PO; -DIAZ5TAB4 PO; +DICY10CA88 PO; +GUAN1TAB PO; -HYDR-3965 PO; -HYDR50TA65 PO; +LOPE2CAP PO; +LOVA20TA2 PO; -NITR0.4T51 SL; +ONDA4TAB6 SL; -ONDA8TAB6 PO; +PHEN95TA27 PO; +PROC10TA10 PO; -RANI150T8 PO; +SUMA6PEN13 SQ; -TRAZ-256 PO; +ZALE10CA PO
[2021-10-23] MEDS ORDERED: normal saline 1000ml 1,000 ML IV ONE ×2 (16:30)
[2021-10-23] MEDS ORDERED: LORazepam 2 mg/ml vial IV ONE (16:30)
[2021-10-23] MEDS ORDERED: proCHLORperazine 10 MG/2 ml inj IV ONE (16:30)
[2021-10-23] MEDS ORDERED: diphenhydrAMINE 50 mg/ml inj IV ONE (16:30)
--- NOTE | 2021-10-23 19:45 | NUR ---
Pt given and understands d/c instructions. IV d/c'd, catheter was intact. Ambulatory with a steady gait.
[2021-10-23 19:56] VITALS: BP 120/82
== END 2021-10-23 19:45 | disposition home or self-care (01) ==
LOC: ER 13:18
DX: G43.909 Migraine, unspecified, not intractable, without status migrainosus (principal); G40.909 Epilepsy, unspecified, not intractable, without status epilepticus; J45.909 Unspecified asthma, uncomplicated; G89.29 Other chronic pain; Z90.49 Acquired absence of other specified parts of digestive tract; Z56.0 Unemployment, unspecified; Z98.51 Tubal ligation status
CPT/HCPCS: 96361; 96374; 96375; 99285; J0780; J1200; J2060; J7030

== ENCOUNTER 2021-11-02 17:33 | Emergency (ER) | payer OTHER, MEDICAID ==
[~2021-11-02] VITALS: Ht 162.6 cm; Wt 88.2 kg
[2021-11-02 17:46] VITALS: BP 111/76
== END 2021-11-02 20:42 | disposition left against medical advice (07) ==
LOC: ER 17:34
DX: Z00.8 Encounter for other general examination (principal); Z53.21 Procedure and treatment not carried out due to patient leaving prior to being seen by health care provider

== ENCOUNTER 2022-11-02 12:52 | Emergency (ER) | payer OTHER, MEDICAID ==
[~2022-11-02] VITALS: Ht 170.2 cm; Wt 109.1 kg
[2022-11-02 14:47] VITALS: BP 112/70
[2022-11-02] MEDS ORDERED: diphenhydrAMINE 50 mg/ml inj IM ONE (15:50)
[2022-11-02 16:10] LABS: D-DIMER 0.41 MG/L FEU (0-0.50)
[2022-11-02] MEDS ORDERED: ALBU8HFA PO (17:16)
== END 2022-11-02 17:40 | disposition home or self-care (01) ==
LOC: ER 12:52
DX: U07.1 COVID-19 (principal); J45.909 Unspecified asthma, uncomplicated; G43.909 Migraine, unspecified, not intractable, without status migrainosus; G89.29 Other chronic pain; F31.9 Bipolar disorder, unspecified; F17.200 Nicotine dependence, unspecified, uncomplicated; Z56.0 Unemployment, unspecified; Z79.899 Other long term (current) drug therapy; Z88.0 Allergy status to penicillin; Z88.2 Allergy status to sulfonamides; Z88.1 Allergy status to other antibiotic agents
CPT/HCPCS: 36415; 85379; 96372; 99283; J1200

== ENCOUNTER 2023-07-28 10:26 | Emergency (ER) | payer OTHER, MEDICAID ==
[~2023-07-28] VITALS: Ht 162.6 cm; Wt 88.4 kg
[~2023-07-28 10:26] MED LIST changes: -PROC10TA10 PO; +PROC10TA97 PO
[2023-07-28 10:31] VITALS: BP 141/83; PULSE 96; RESP 14; TEMP 98.3; O2SAT 96
== END 2023-07-28 14:17 | disposition left against medical advice (07) ==
LOC: ER 10:27
DX: M54.9 Dorsalgia, unspecified (principal); Z53.21 Procedure and treatment not carried out due to patient leaving prior to being seen by health care provider
CPT/HCPCS: 99281

== ENCOUNTER 2023-09-06 10:35 | Emergency (ER) | payer MEDICAID, OTHER ==
[~2023-09-06] VITALS: Ht 162.6 cm; Wt 83.0 kg
[2023-09-06 11:00] VITALS: BP 129/84; PULSE 94; RESP 16; O2SAT 96
[2023-09-06] MEDS ORDERED: HYDROcodone/acetaminophen 10/325mg tab PO ONE (12:35)
[2023-09-06 13:11] VITALS: TEMP 98.1
--- NOTE | 2023-09-06 13:13 | NUR ---
provider assessed prior to nursing assessment
== END 2023-09-06 13:13 | disposition home or self-care (01) ==
LOC: ER 10:36
DX: S16.1XXA Strain of muscle, fascia and tendon at neck level, initial encounter (principal); G43.909 Migraine, unspecified, not intractable, without status migrainosus; J45.909 Unspecified asthma, uncomplicated; F31.9 Bipolar disorder, unspecified; Z88.0 Allergy status to penicillin; Z88.2 Allergy status to sulfonamides; Z88.8 Allergy status to other drugs, medicaments and biological substances; Z79.1 Long term (current) use of non-steroidal anti-inflammatories (NSAID); Z79.899 Other long term (current) drug therapy; Z90.49 Acquired absence of other specified parts of digestive tract; Z98.51 Tubal ligation status
CPT/HCPCS: 99283

== ENCOUNTER 2024-01-07 11:28 | Emergency (ER) | payer OTHER, MEDICAID ==
[~2024-01-07] VITALS: Ht 162.6 cm; Wt 90.9 kg
[2024-01-07 12:44] LABS: BASOPHILS # (AUTO) 0.1 X10'3 (0-0.2); BASOPHILS % (AUTO) 0.4 % (0-1); EOSINOPHILS # (AUTO) 0.2 X10'3 (0-0.9); EOSINOPHILS % (AUTO) 1.1 % (0-6); HEMATOCRIT 43.8 % (35.0-45.0); HEMOGLOBIN 14.8 g/dl (12.0-16.0); LYMPHOCYTES # (AUTO) 3.7 X10'3 (1.1-4.8); LYMPHOCYTES % (AUTO) 20.7 % (21-51); MEAN CORPUSCULAR HEMOGLOBIN 30.8 PG (27.0-31.0); MEAN CORPUSCULAR HGB CONC 33.9 g/dL (33.0-36.5); MEAN CORPUSCULAR VOLUME 90.8 FL (78-98); MEAN PLATELET VOLUME 8.3 FL (7.4-10.4); MONOCYTES # (AUTO) 1.1 X10'3 (0-0.9); NEUTROPHILS # (AUTO) 12.8 X10'3 (1.8-7.7); NEUTROPHILS % (AUTO) 71.8 % (42-75); PLATELET COUNT 416 X10'3 (140-440); RED BLOOD COUNT 4.82 X10'6 (4.20-5.60); RED CELL DISTRIBUTION WIDTH 13.3 % (11.5-14.5); WHITE BLOOD COUNT 17.8 X10'3 (4.5-11.0)
[2024-01-07 13:05] LABS: ALBUMIN 3.5 G/DL (3.4-5.0); ANION GAP 7 (8-16); BLOOD UREA NITROGEN 15 MG/DL (7-18); BUN/CREATININE RATIO 19.5 (10.0-20.0); CHLORIDE 106 MMOL/L (99-107); CREATININE 0.77 MG/DL (0.40-0.90); GLUCOSE 130 MG/DL (70-104); POTASSIUM 3.8 MMOL/L (3.5-5.1); PRO BRAIN NATRIURETIC PEPTIDE < 30 PG/ML (0-125); SODIUM 142 MMOL/L (135-145); TOTAL CARBON DIOXIDE 29.3 MMOL/L (24-32); eCRCL 81 ML/MIN; eGFR 81 ML/MIN
[2024-01-07 15:38] LABS: D-DIMER 0.51 MG/L FEU (0-0.50)
[2024-01-07 15:47] LABS: ETHANOL < 10 MG/DL (<10); LIPASE 42 U/L (16-77); MAGNESIUM 2.4 MG/DL (1.5-2.4); PRO BRAIN NATRIURETIC PEPTIDE < 30 PG/ML (0-125); THYROID STIMULATING HORMONE 2.29 ulU/ml (0.34-4.50)
[2024-01-07] MEDS ORDERED: iohexol 350MG/ML 100ml bottle IV ONE (19:35)
[2024-01-07] MEDS: ondansetron/PF 4mg/2ml inj IV ONE (19:36)
[2024-01-07] MEDS: morphine 4 MG/ML inj SYRINge IV ONE (19:36)
[2024-01-07] MEDS: normal saline 1000ml 1,000 ML IV SCH (19:37)
[2024-01-07] MEDS: LORazepam 2 mg/ml vial IV ONE (19:37)
[2024-01-07] MEDS: aspirin 81mg tab.chew PO ONE (19:37)
[2024-01-07 20:37] LABS: URINE HCG NEGATIVE (NEG)
[2024-01-07 20:43] LABS: BILIRUBIN,URINE NEGATIVE (Neg); CLARITY,URINE CLEAR (Clear); COLOR,URINE YELLOW (Yellow); GLUCOSE, URINE NEGATIVE (Neg); KETONES,URINE NEGATIVE (Neg); LEUKOCYTE ESTERASE ,URINE NEGATIVE (Neg); NITRITES, URINE NEGATIVE (Neg); OCCULT BLOOD,URINE NEGATIVE (Neg); PH,URINE 6.5 (4.8-8.0); PROTEIN,URINE NEGATIVE (Neg); UA COLLECTION TYPE CLN CATCH MIDSTREAM; UROBILINOGEN,URINE 0.2 E.U/dL (0.2-1.0)
[2024-01-07 20:52] LABS: URINE AMPHETAMINE SCREEN NEGATIVE (Neg); URINE BARBITUATE SCREEN NEGATIVE (Neg); URINE BENZODIAZEPINES SCREEN NEGATIVE (Neg); URINE CANNABINOID SCREEN NEGATIVE (Neg); URINE COCAINE SCREEN NEGATIVE (Neg); URINE METHADONE SCREEN NEGATIVE (Neg); URINE OPIATE SCREEN POSITIVE (Neg); URINE PHENCYCLIDINE SCREEN NEGATIVE (Neg)
[2024-01-07 22:27] VITALS: BP 124/82; PULSE 86; RESP 15; TEMP 98; O2SAT 96
== END 2024-01-07 22:45 | disposition home or self-care (01) ==
LOC: ER 11:28
DX: R07.9 Chest pain, unspecified (principal); R51.9 Headache, unspecified; R53.83 Other fatigue; G43.909 Migraine, unspecified, not intractable, without status migrainosus; J45.909 Unspecified asthma, uncomplicated; F31.9 Bipolar disorder, unspecified
CPT/HCPCS: 36415; 71045; 71275; 80048; 80305; 80320; 81003; 81025; 83690; 83735; 83880; 84443; 84484; 85025; 85379; 93005; 96361; 96374; 96375; 99285; J2060; J2270; J2405; J3490; J7030; Q9967

== ENCOUNTER 2024-01-14 10:48 | Observation (INO) | payer OTHER, MEDICAID ==
[~2024-01-14] VITALS: Ht 162.6 cm; Wt 87.0 kg
[2024-01-14 11:35] LABS: BASOPHILS # (AUTO) 0.1 X10'3 (0-0.2); BASOPHILS % (AUTO) 0.6 % (0-1); EOSINOPHILS # (AUTO) 0.2 X10'3 (0-0.9); EOSINOPHILS % (AUTO) 1.6 % (0-6); HEMATOCRIT 42.2 % (35.0-45.0); HEMOGLOBIN 14.3 g/dl (12.0-16.0); LYMPHOCYTES # (AUTO) 3.6 X10'3 (1.1-4.8); LYMPHOCYTES % (AUTO) 27.1 % (21-51); MEAN CORPUSCULAR HEMOGLOBIN 30.5 PG (27.0-31.0); MEAN CORPUSCULAR HGB CONC 33.9 g/dL (33.0-36.5); MEAN PLATELET VOLUME 8.2 FL (7.4-10.4); MONOCYTES # (AUTO) 0.9 X10'3 (0-0.9); MONOCYTES % (AUTO) 6.9 % (2-12); NEUTROPHILS # (AUTO) 8.4 X10'3 (1.8-7.7); NEUTROPHILS % (AUTO) 63.8 % (42-75); PLATELET COUNT 367 X10'3 (140-440); RED BLOOD COUNT 4.69 X10'6 (4.20-5.60); RED CELL DISTRIBUTION WIDTH 13.5 % (11.5-14.5); WHITE BLOOD COUNT 13.1 X10'3 (4.5-11.0)
[2024-01-14] MEDS: nitroGLYCERIN 1gm ointment UD TP ONE (12:23)
[2024-01-14] MEDS: acetaminophen 1,000mg/100ml IV 100 ML IV STA (12:24)
[2024-01-14 12:46] LABS: ALBUMIN 3.4 G/DL (3.4-5.0); ANION GAP 12 (8-16); BLOOD UREA NITROGEN 10 MG/DL (7-18); BUN/CREATININE RATIO 13.3 (10.0-20.0); CALCIUM 8.5 MG/DL (8.5-10.1); CHLORIDE 108 MMOL/L (99-107); CREATININE 0.75 MG/DL (0.40-0.90); GLUCOSE 95 MG/DL (70-104); POTASSIUM 3.9 MMOL/L (3.5-5.1); PRO BRAIN NATRIURETIC PEPTIDE 30 PG/ML (0-125); SODIUM 142 MMOL/L (135-145); TOTAL CARBON DIOXIDE 21.6 MMOL/L (24-32); eCRCL 83 ML/MIN; eGFR 84 ML/MIN
[2024-01-14] MEDS: metoclopramide 5 mg/ml inj IV ONE (13:26)
[2024-01-14] MEDS: diphenhydrAMINE 50 mg/ml inj IV STA (13:27)
[2024-01-14] MEDS ORDERED: potassium Cl 20 mEq SR tablet PO PRN ×2 (14:05)
[2024-01-14] MEDS ORDERED: magnesium Cl slow-release 64mg tablet PO PRN (14:05)
[2024-01-14] MEDS ORDERED: mag hydrox/Alum hydrox/simeth 30ml oral suspension PO PRN (14:05)
[2024-01-14] MEDS ORDERED: ondansetron/PF 4mg/2ml inj IV PRN (14:05)
[2024-01-14] MEDS ORDERED: magnesium hydroxide 30ml (MOM) UD suspension PO PRN (14:05)
[2024-01-14] MEDS ORDERED: magnesium 2GM in 50ml NS 50 ML IV PRN (14:05)
[2024-01-14] MEDS ORDERED: magnesium 4gm in 100ml NS 100 ML IV PRN (14:05)
[2024-01-14] MEDS ORDERED: potassium Cl 40MEQ/1/2NS 520ml 520 ML IV PRN (14:05)
[2024-01-14 14:57] LABS: LIPASE 31 U/L (16-77)
[2024-01-14 15:30] LABS: BILIRUBIN,URINE NEGATIVE (Neg); CLARITY,URINE CLEAR (Clear); COLOR,URINE YELLOW (Yellow); GLUCOSE, URINE NEGATIVE (Neg); KETONES,URINE NEGATIVE (Neg); LEUKOCYTE ESTERASE ,URINE NEGATIVE (Neg); NITRITES, URINE NEGATIVE (Neg); OCCULT BLOOD,URINE NEGATIVE (Neg); PROTEIN,URINE NEGATIVE (Neg); UROBILINOGEN,URINE 0.2 E.U/dL (0.2-1.0)
[2024-01-14 15:31] LABS: URINE HCG NEGATIVE (NEG)
[2024-01-14 15:36] LABS: UA COLLECTION TYPE CLN CATCH MIDSTREAM
[2024-01-14 15:54] LABS: URINE AMPHETAMINE SCREEN NEGATIVE (Neg); URINE BARBITUATE SCREEN NEGATIVE (Neg); URINE BENZODIAZEPINES SCREEN NEGATIVE (Neg); URINE CANNABINOID SCREEN NEGATIVE (Neg); URINE COCAINE SCREEN NEGATIVE (Neg); URINE METHADONE SCREEN NEGATIVE (Neg); URINE OPIATE SCREEN NEGATIVE (Neg); URINE PHENCYCLIDINE SCREEN NEGATIVE (Neg)
[2024-01-14] MEDS: acetaminophen 325mg tablet PO PRN (19:51)
[2024-01-14] MEDS: K and/or MAG REPLACEMENT MC SCH (20:00)
[2024-01-14 21:00] VITALS: BP 115/75; PULSE 74; RESP 16; TEMP 98.1; O2SAT 96
[2024-01-14] MEDS ORDERED: LORazepam 1 MG tablet PO PRN (21:50)
[2024-01-14] MEDS: heparin, porcine 5000 units/ml vial SQ SCH (22:00)
[2024-01-14] MEDS: pantoprazole 40mg Tablet.DR PO SCH (22:30)
[2024-01-14] MEDS: LORazepam 1 MG tablet PO PRN (22:34)
[2024-01-14] MEDS: venlafaxine 37.5mg tablet PO SCH (22:35)
[2024-01-14] MEDS: carBAMazepine 100mg chewable tablet PO SCH (22:35)
[2024-01-15] VITALS: BP 110/70; PULSE 85; RESP 21; TEMP 98.3; O2SAT 97
[2024-01-15 04:11] LABS: BASOPHILS # (AUTO) 0.1 X10'3 (0-0.2); BASOPHILS % (AUTO) 0.4 % (0-1); EOSINOPHILS # (AUTO) 0.3 X10'3 (0-0.9); EOSINOPHILS % (AUTO) 2.2 % (0-6); HEMATOCRIT 41.6 % (35.0-45.0); HEMOGLOBIN 13.9 g/dl (12.0-16.0); LYMPHOCYTES # (AUTO) 3.5 X10'3 (1.1-4.8); LYMPHOCYTES % (AUTO) 29.6 % (21-51); MEAN CORPUSCULAR HEMOGLOBIN 30.4 PG (27.0-31.0); MEAN CORPUSCULAR HGB CONC 33.5 g/dL (33.0-36.5); MEAN CORPUSCULAR VOLUME 90.8 FL (78-98); MEAN PLATELET VOLUME 8.3 FL (7.4-10.4); MONOCYTES % (AUTO) 8.9 % (2-12); NEUTROPHILS # (AUTO) 6.9 X10'3 (1.8-7.7); NEUTROPHILS % (AUTO) 58.9 % (42-75); PLATELET COUNT 340 X10'3 (140-440); RED BLOOD COUNT 4.58 X10'6 (4.20-5.60); RED CELL DISTRIBUTION WIDTH 13.2 % (11.5-14.5); WHITE BLOOD COUNT 11.7 X10'3 (4.5-11.0)
[2024-01-15 04:34] LABS: ALBUMIN 3.2 G/DL (3.4-5.0); ANION GAP 9 (8-16); BLOOD UREA NITROGEN 7 MG/DL (7-18); BUN/CREATININE RATIO 10.8 (10.0-20.0); CHLORIDE 108 MMOL/L (99-107); CHOL/HDL RATIO 5.2 (0.00-4.99); CHOLESTEROL 212 MG/DL (0-200); CREATININE 0.65 MG/DL (0.40-0.90); GLUCOSE 99 MG/DL (70-104); HDL CHOLESTEROL 41 MG/DL (35-60); LDL CHOLESTEROL 123 MG/DL (50-100); MAGNESIUM 2.3 MG/DL (1.5-2.4); POTASSIUM 3.7 MMOL/L (3.5-5.1); SODIUM 142 MMOL/L (135-145); TOTAL CARBON DIOXIDE 24.7 MMOL/L (24-32); TRIGLYCERIDES 156 MG/DL (20-135); eCRCL 95 ML/MIN; eGFR > 90 ML/MIN
[2024-01-15 04:35] LABS: THYROID STIMULATING HORMONE 2.33 ulU/ml (0.34-4.50)
[2024-01-15 08:00] VITALS: RESP 18; O2SAT 98
[2024-01-15] MEDS: pantoprazole 40mg Tablet.DR PO SCH (10:13)
[2024-01-15] MEDS ORDERED: LORazepam 1 MG tablet PO PRN (10:45)
[2024-01-15] MEDS ORDERED: calcium carbonate 500mg chew tablet PO PRN (10:45)
[2024-01-15] MEDS ORDERED: ondansetron 4mg rapidly disintigrating tab PO PRN (10:45)
[2024-01-15] MEDS ORDERED: SUMAtriptan succ. 6 MG/0.5ml vial SQ PRN (10:45)
[2024-01-15] MEDS ORDERED: zolpidem 5mg tablet PO PRN (10:45)
[2024-01-15] MEDS ORDERED: dicyclomine 10 MG capsule PO PRN (10:45)
[2024-01-15] MEDS ORDERED: baclofen 10mg tablet PO PRN (10:45)
[2024-01-15 11:00] VITALS: BP 112/76; PULSE 76; RESP 18; TEMP 98.7; O2SAT 98
[2024-01-15] MEDS: normal saline 1000ml 1,000 ML IV SCH (11:06)
[2024-01-15] MEDS: nicotine 14mg patch - 24hr TD ONE (11:09)
[2024-01-15] MEDS ORDERED: ASPI-1071 PO (12:33)
[2024-01-15] MEDS ORDERED: PANT40TA54 PO (12:33)
[2024-01-15] MEDS ORDERED: CARBAMAZEPINE PO SCH (20:00)
[2024-01-15] MEDS ORDERED: pantoprazole 40mg Tablet.DR PO SCH (20:00)
[2024-01-15] MEDS ORDERED: aspirin 81mg, enteric-coated 1 TAB TABLET.DR PO SCH (20:00)
[2024-01-15] MEDS ORDERED: venlafaxine XR 75mg capsule (Q24H) PO SCH (21:00)
[2024-01-15] MEDS ORDERED: guanFACINE 1 mg tablet PO SCH (21:00)
[2024-01-16] MEDS ORDERED: atorvastatin 10mg tablet PO SCH (08:00)
[2024-01-16] MEDS ORDERED: nicotine 14mg patch - 24hr TD SCH (08:00)
== END 2024-01-15 15:30 | disposition home or self-care (01) ==
LOC: ER 10:48 → ED HOLD 14:10 → SUR 3N 20:45
PROVIDERS: ADMIT Family Medicine; ATTEND Family Medicine
DX: R07.89 Other chest pain (principal); E78.5 Hyperlipidemia, unspecified; G43.909 Migraine, unspecified, not intractable, without status migrainosus; F41.8 Other specified anxiety disorders; F31.9 Bipolar disorder, unspecified; F43.10 Post-traumatic stress disorder, unspecified; J45.909 Unspecified asthma, uncomplicated; F17.210 Nicotine dependence, cigarettes, uncomplicated; Z79.899 Other long term (current) drug therapy; Z88.0 Allergy status to penicillin
CPT/HCPCS: 36415; 71045; 80048; 80061; 80305; 81003; 81025; 83690; 83735; 83880; 84443; 84484; 85025; 87081; 93005; 93306; 96361; 96374; 96375; 99291; G0378; J0131; J1200; J2765; J7030

== ENCOUNTER 2024-07-08 20:22 | Emergency (ER) | payer OTHER, MEDICAID ==
[~2024-07-08] VITALS: Ht 162.6 cm; Wt 84.5 kg
[~2024-07-08 20:22] MED LIST changes: +ASPI-1071 PO; -ASPI-611 PO; -ATEN25TA2 PO; -PANT20TA18 PO; +PANT40TA54 PO; +SUMA6PEN SQ; -SUMA6PEN13 SQ
[2024-07-08 22:13] LABS: BASOPHILS # (AUTO) 0.1 X10'3 (0-0.2); BASOPHILS % (AUTO) 0.8 % (0-1); EOSINOPHILS # (AUTO) 0.3 X10'3 (0-0.9); EOSINOPHILS % (AUTO) 2.3 % (0-6); HEMATOCRIT 43.1 % (35.0-45.0); HEMOGLOBIN 14.5 g/dl (12.0-16.0); LYMPHOCYTES # (AUTO) 3.8 X10'3 (1.1-4.8); LYMPHOCYTES % (AUTO) 31.5 % (21-51); MEAN CORPUSCULAR HEMOGLOBIN 31.2 PG (27.0-31.0); MEAN CORPUSCULAR HGB CONC 33.7 g/dL (33.0-36.5); MEAN CORPUSCULAR VOLUME 92.3 FL (78-98); MEAN PLATELET VOLUME 8.3 FL (7.4-10.4); MONOCYTES % (AUTO) 8.1 % (2-12); NEUTROPHILS # (AUTO) 6.9 X10'3 (1.8-7.7); NEUTROPHILS % (AUTO) 57.3 % (42-75); PLATELET COUNT 373 X10'3 (140-440); RED BLOOD COUNT 4.67 X10'6 (4.20-5.60); RED CELL DISTRIBUTION WIDTH 13.1 % (11.5-14.5); WHITE BLOOD COUNT 12.1 X10'3 (4.5-11.0)
[2024-07-08 22:19] LABS: ALBUMIN 3.6 G/DL (3.4-5.0); ANION GAP 10 (8-16); BLOOD UREA NITROGEN 10 MG/DL (7-18); BUN/CREATININE RATIO 14.7 (10.0-20.0); CALCIUM 8.8 MG/DL (8.5-10.1); CHLORIDE 107 MMOL/L (99-107); CREATININE 0.68 MG/DL (0.40-0.90); GLUCOSE 102 MG/DL (70-104); SODIUM 142 MMOL/L (135-145); TOTAL CARBON DIOXIDE 25.2 MMOL/L (24-32); eCRCL 91 ML/MIN; eGFR > 90 ML/MIN
[2024-07-08] MEDS: olanzapine 10mg tablet PO ONE (22:22)
[2024-07-08] MEDS: diphenhydrAMINE 25mg capsule PO ONE (22:22)
[2024-07-08] MEDS: zolpidem 5mg tablet PO ONE (22:22)
[2024-07-08 22:26] LABS: ETHANOL < 10 MG/DL (<10)
[2024-07-08 22:38] LABS: URINE HCG NEGATIVE (NEG)
[2024-07-08 23:03] LABS: CARBAMAZEPINE (TEGRETOL) 5.9 UG/ML (4.0-12.0)
[2024-07-08 23:03] LABS: URINE AMPHETAMINE SCREEN NEGATIVE (Neg); URINE BARBITUATE SCREEN NEGATIVE (Neg); URINE BENZODIAZEPINES SCREEN NEGATIVE (Neg); URINE CANNABINOID SCREEN NEGATIVE (Neg); URINE COCAINE SCREEN NEGATIVE (Neg); URINE METHADONE SCREEN NEGATIVE (Neg); URINE OPIATE SCREEN POSITIVE (Neg); URINE PHENCYCLIDINE SCREEN NEGATIVE (Neg)
[2024-07-09] MEDS ORDERED: HYDR-3686 PO (00:44)
[2024-07-09] MEDS ORDERED: QUET50TA PO (00:46)
[2024-07-09] MEDS ORDERED: PANT20TA18 PO (00:46)
[2024-07-09] MEDS ORDERED: VENL150C58 PO (00:46)
[2024-07-09] MEDS ORDERED: HYDR-3964 PO (00:48)
[2024-07-09] MEDS ORDERED: LORA-269 PO (00:48)
[2024-07-09] MEDS ORDERED: NITR0.3T10 (00:49)
[2024-07-09] MEDS ORDERED: INDLA80C PO (00:49)
[2024-07-09] MEDS ORDERED: BACL10TA2 PO (00:50)
[2024-07-09] MEDS ORDERED: SENN-367 PO (00:53)
[2024-07-09] MEDS ORDERED: OXYB5TAB21 PO (00:53)
[2024-07-09] MEDS ORDERED: SUCR1TAB PO (00:55)
[2024-07-09] MEDS ORDERED: ONDA-245 PO (00:55)
[2024-07-09] MEDS ORDERED: LOVA40TA2 PO (00:55)
[2024-07-09] MEDS ORDERED: HYDROcodone/acetaminophen 5mg/325mg tablet PO PRN (01:25)
[2024-07-09] MEDS ORDERED: hydrOXYzine 25 MG tablet PO PRN (01:25)
[2024-07-09 05:25] VITALS: TEMP 98.5; O2SAT 95
[2024-07-09] MEDS: propranolol LA 80mg capsule (long-acting) PO SCH (08:00)
[2024-07-09] MEDS ORDERED: LORazepam 1 MG tablet PO PRN (08:00)
[2024-07-09] MEDS: pantoprazole 40mg Tablet.DR PO SCH (10:14)
[2024-07-09] MEDS: venlafaxine XR 75mg capsule (Q24H) PO SCH (10:15)
[2024-07-09] MEDS: mag hydrox/Alum hydrox/simeth 30ml oral suspension PO ONE (11:09)
[2024-07-09] MEDS: sucralfate 1 gm tablet PO SCH (11:09)
[2024-07-09] MEDS: carBAMazepine 100mg chewable tablet PO SCH (11:10)
[2024-07-09 11:11] VITALS: BP 107/71; PULSE 75
[2024-07-09 12:03] VITALS: RESP 16
[2024-07-09] MEDS: LORazepam 1 MG tablet PO ONE (12:03)
[2024-07-09] MEDS: HYDROcodone/acetaminophen 5mg/325mg tablet PO ONE (12:03)
[2024-07-09] MEDS ORDERED: QUEtiapine 25mg tablet PO SCH (21:00)
[2024-07-09] MEDS ORDERED: sennosides 8.6mg tablet PO SCH (21:00)
[2024-07-09] MEDS ORDERED: guanFACINE 1 mg tablet PO SCH (21:00)
== END 2024-07-09 12:08 | disposition home or self-care (01) ==
LOC: ER 20:23
DX: F99 Mental disorder, not otherwise specified (principal); G43.909 Migraine, unspecified, not intractable, without status migrainosus; J45.909 Unspecified asthma, uncomplicated; G89.29 Other chronic pain; F41.9 Anxiety disorder, unspecified; F32.A Depression, unspecified; Z90.49 Acquired absence of other specified parts of digestive tract; Z98.51 Tubal ligation status; Z56.0 Unemployment, unspecified; Z79.899 Other long term (current) drug therapy; Z79.82 Long term (current) use of aspirin; Z88.0 Allergy status to penicillin; Z88.2 Allergy status to sulfonamides; Z88.8 Allergy status to other drugs, medicaments and biological substances; Z20.822 Contact with and (suspected) exposure to COVID-19
CPT/HCPCS: 36415; 80048; 80156; 80305; 80320; 81025; 85025; 87811; 99284; Q0163

== ENCOUNTER 2024-09-07 13:53 | Emergency (ER) | payer OTHER, MEDICAID ==
[~2024-09-07] VITALS: Ht 172.7 cm; Wt 87.3 kg
[~2024-09-07 13:53] MED LIST changes: -ASPI-1071 PO; -BACL10TA PO; +BACL10TA2 PO; -CALC500T11 PO; -DICY10CA88 PO; +HYDR-3686 PO; +HYDR-3964 PO; +INDLA80C PO; -LOPE2CAP PO; +LORA-269 PO; -LORA1TAB PO; -LOVA20TA2 PO; +LOVA40TA2 PO; +NITR0.3T10; +ONDA-245 PO; -ONDA4TAB6 SL; +OXYB5TAB21 PO; +PANT20TA18 PO; -PANT40TA54 PO; -PHEN95TA27 PO; -PROC10TA97 PO; +QUET50TA PO; +SENN-367 PO; +SUCR1TAB PO; +VENL150C58 PO; -VENL75TA90 PO; -ZALE10CA PO
[2024-09-07 14:17] VITALS: TEMP 97.2
[2024-09-07 15:04] LABS: BASOPHILS # (AUTO) 0.1 X10'3 (0-0.2); BASOPHILS % (AUTO) 0.6 % (0-1); EOSINOPHILS # (AUTO) 0.2 X10'3 (0-0.9); HEMATOCRIT 42.2 % (35.0-45.0); HEMOGLOBIN 14.1 g/dl (12.0-16.0); LYMPHOCYTES # (AUTO) 3.5 X10'3 (1.1-4.8); LYMPHOCYTES % (AUTO) 29.3 % (21-51); MEAN CORPUSCULAR HEMOGLOBIN 30.4 PG (27.0-31.0); MEAN CORPUSCULAR HGB CONC 33.4 g/dL (33.0-36.5); MEAN CORPUSCULAR VOLUME 91.3 FL (78-98); MONOCYTES # (AUTO) 0.8 X10'3 (0-0.9); MONOCYTES % (AUTO) 7.1 % (2-12); NEUTROPHILS # (AUTO) 7.3 X10'3 (1.8-7.7); PLATELET COUNT 361 X10'3 (140-440); RED BLOOD COUNT 4.63 X10'6 (4.20-5.60); RED CELL DISTRIBUTION WIDTH 13.8 % (11.5-14.5); WHITE BLOOD COUNT 11.9 X10'3 (4.5-11.0)
[2024-09-07 15:05] LABS: ALANINE AMINOTRANSFERASE 20 U/L (12-78); ALBUMIN 3.6 G/DL (3.4-5.0); ALKALINE PHOSPHATASE 128 IU/L (46-116); ANION GAP 7 (8-16); ASPARTATE AMINO TRANSFERASE 17 U/L (10-37); BILIRUBIN,TOTAL 0.2 MG/DL (0.1-1.0); BLOOD UREA NITROGEN 10 MG/DL (7-18); BUN/CREATININE RATIO 15.6 (10.0-20.0); CALCIUM 8.6 MG/DL (8.5-10.1); CHLORIDE 104 MMOL/L (99-107); CREATININE 0.64 MG/DL (0.40-0.90); GLUCOSE 96 MG/DL (70-104); POTASSIUM 3.9 MMOL/L (3.5-5.1); SODIUM 138 MMOL/L (135-145); TOTAL CARBON DIOXIDE 26.9 MMOL/L (24-32); TOTAL PROTEIN 7.1 G/DL (6.4-8.2); eCRCL 113 ML/MIN; eGFR > 90 ML/MIN
[2024-09-07 15:12] LABS: PRO BRAIN NATRIURETIC PEPTIDE 98 PG/ML (0-125)
[2024-09-07] MEDS: metoclopramide 5 mg/ml inj IV ONE (16:01)
[2024-09-07] MEDS: diphenhydrAMINE 50 mg/ml inj IV ONE (16:01)
[2024-09-07] MEDS: ketorolac trometh 15mg/ml vial 15 MG/ML ML IV ONE (16:02)
[2024-09-07 17:58] VITALS: BP 122/90; PULSE 89; RESP 18; O2SAT 97
== END 2024-09-07 17:57 | disposition home or self-care (01) ==
LOC: ER 13:54
DX: R07.89 Other chest pain (principal); J45.909 Unspecified asthma, uncomplicated; G89.29 Other chronic pain; F32.A Depression, unspecified; G43.909 Migraine, unspecified, not intractable, without status migrainosus; F17.200 Nicotine dependence, unspecified, uncomplicated; Z88.0 Allergy status to penicillin; Z88.2 Allergy status to sulfonamides; Z88.5 Allergy status to narcotic agent; Z98.51 Tubal ligation status; Z90.49 Acquired absence of other specified parts of digestive tract
CPT/HCPCS: 36415; 71045; 80053; 83880; 84484; 85025; 93005; 96374; 96375; 99285; J1200; J1885; J2765

== ENCOUNTER → 2025-01-05 | Outpatient (CLI) | payer OTHER, MEDICAID ==
[~2025-01-05] MED LIST changes: +GABA300C PO
== END | disposition home or self-care (01) ==
LOC: MRI02 05:59
PROVIDERS: ATTEND Orthopaedic Surgery
DX: S83.511A Sprain of anterior cruciate ligament of right knee, initial encounter (principal); S83.241A Other tear of medial meniscus, current injury, right knee, initial encounter; M94.261 Chondromalacia, right knee; M25.461 Effusion, right knee; M25.561 Pain in right knee; X58.XXXA Exposure to other specified factors, initial encounter; Y93.89 Activity, other specified; Y92.89 Other specified places as the place of occurrence of the external cause; Y99.8 Other external cause status
CPT/HCPCS: 73721

== ENCOUNTER 2025-04-13 11:52 | Emergency (ER) | payer OTHER, MEDICAID ==
[~2025-04-13] VITALS: Ht 162.6 cm; Wt 94.1 kg
[~2025-04-13 11:52] MED LIST changes: -GUAN1TAB PO; +GUAN1TAB62 PO
[2025-04-13 12:31] LABS: BASOPHILS # (AUTO) 0.1 X10'3 (0-0.2); BASOPHILS % (AUTO) 0.7 % (0-1); EOSINOPHILS # (AUTO) 0.3 X10'3 (0-0.9); EOSINOPHILS % (AUTO) 2.9 % (0-6); LYMPHOCYTES # (AUTO) 3.3 X10'3 (1.1-4.8); LYMPHOCYTES % (AUTO) 28.3 % (21-51); MEAN CORPUSCULAR HEMOGLOBIN 29.1 PG (27.0-31.0); MEAN CORPUSCULAR HGB CONC 32.5 g/dL (33.0-36.5); MEAN CORPUSCULAR VOLUME 89.6 FL (78-98); MEAN PLATELET VOLUME 8.3 FL (7.4-10.4); MONOCYTES # (AUTO) 0.7 X10'3 (0-0.9); MONOCYTES % (AUTO) 6.5 % (2-12); NEUTROPHILS # (AUTO) 7.1 X10'3 (1.8-7.7); NEUTROPHILS % (AUTO) 61.6 % (42-75); PLATELET COUNT 395 X10'3 (140-440); RED CELL DISTRIBUTION WIDTH 13.2 % (11.5-14.5); WHITE BLOOD COUNT 11.5 X10'3 (4.5-11.0)
[2025-04-13 12:51] LABS: URINE HCG NEGATIVE (NEG)
[2025-04-13 12:55] LABS: ALANINE AMINOTRANSFERASE 30 U/L (12-78); ALBUMIN 3.6 G/DL (3.4-5.0); ALBUMIN/GLOBULIN RATIO 1.1 (1.1-1.5); ALKALINE PHOSPHATASE 155 IU/L (46-116); ANION GAP 12 (8-16); ASPARTATE AMINO TRANSFERASE 10 U/L (10-37); BILIRUBIN,TOTAL 0.2 MG/DL (0.1-1.0); BLOOD UREA NITROGEN 6 MG/DL (7-18); BUN/CREATININE RATIO 9.2 (10.0-20.0); CALCIUM 8.6 MG/DL (8.5-10.1); CHLORIDE 109 MMOL/L (99-107); CREATININE 0.65 MG/DL (0.40-0.90); GLUCOSE 109 MG/DL (70-104); LIPASE 36 U/L (16-77); SODIUM 142 MMOL/L (135-145); TOTAL CARBON DIOXIDE 21.2 MMOL/L (24-32); eCRCL 94 ML/MIN; eGFR > 90 ML/MIN
[2025-04-13 13:07] LABS: BILIRUBIN,URINE NEGATIVE (Neg); CLARITY,URINE SLIGHTLY CLOUDY (Clear); COLOR,URINE YELLOW (Yellow); GLUCOSE, URINE NEGATIVE (Neg); KETONES,URINE NEGATIVE (Neg); LEUKOCYTE ESTERASE ,URINE NEGATIVE (Neg); NITRITES, URINE NEGATIVE (Neg); OCCULT BLOOD,URINE NEGATIVE (Neg); PROTEIN,URINE NEGATIVE (Neg); UROBILINOGEN,URINE 0.2 E.U/dL (0.2-1.0)
[2025-04-13 13:12] LABS: UA COLLECTION TYPE CLN CATCH MIDSTREAM
[2025-04-13 13:18] LABS: MUCUS STRANDS FEW /LPF (Neg); SQUAMOUS EPITHELIAL CELL,UR MANY /LPF (FEW)
[2025-04-13 13:20] LABS: AMORPHOUS URATES 1+
[2025-04-13 13:21] LABS: BACTERIA,URINE FEW /HPF (Neg); WBC,URINE 0-4 /HPF (0-4)
[2025-04-13 13:22] LABS: RBC,URINE 0-2 /HPF (0-2)
[2025-04-13] MEDS: ondansetron 4mg rapidly disintigrating tab PO ONE (13:31)
--- NOTE | 2025-04-13 14:48 | Physician Documentation ---
History of Present Illness Chief Complaint: Abdominal Pain w/vomiting Stated Complaint: NAUSEA/VOMITING/DIARRHEA Time Seen by MD: 12:50 Primary Medical Doctor: DR. BROCK Mode of Arrival: POV, Ambulatory HPI Patient is seen today with complaints of four days of nausea vomiting and diarrhea. Patient states it 1st she thought she might have had some food poisoning but states he nausea and vomiting and diarrhea has persisted and she has been having trouble keeping down her medications as well as any liquids or solids. Patient admits to some epigastric discomfort but states she has had a previous cholecystectomy. Patient denies any blood in her vomit or stool or urine currently. She denies any fevers or chills currently. She has no other concern or complaint at this time. Medication Reconciliation Allergies: Coded Allergies: Penicillins (Verified Allergy, Severe, seizures, 10/12/24) Sulfa (Sulfonamide Antibiotics) (Verified Allergy, Mild, rash, 10/12/24) nirmatrelvir (Verified Allergy, Unknown, ITCHING, 10/12/24) ritonavir (Verified Allergy, Unknown, ITCHING, 10/12/24) gabapentin (Unverified Adverse Reaction, Unknown, 04/13/25) Uncoded Allergies: TAPE (Allergy, Unknown, 11/12/18) Scheduled Baclofen (Baclofen), 1 TAB PO BID, (Reported) Carbamazepine (Carbamazepine), 2 TAB PO BID, (Reported) Gabapentin (Neurontin), 1 CAP PO Q8H Guanfacine Hcl (Guanfacine Hcl), 2 TAB PO HS, (Reported) Lorazepam (Ativan), 1 MG PO QID, (Reported) Lovastatin (Lovastatin), 1 TAB PO HS, (Reported) Oxybutynin Chloride (Oxybutynin Chloride), 1 TAB PO BID, (Reported) Pantoprazole Sodium (Protonix), 1 TAB PO BID, (Reported) Propranolol Hcl (Propranolol Hcl), 1 CAP PO DAILY, (Reported) Quetiapine Fumarate (Seroquel), 1 TAB PO HS, (Reported) Sennosides (Jennifer-Mirella), 1 TAB PO HS, (Reported) Sucralfate (Sucralfate), 1 TAB PO QID, (Reported) Venlafaxine Hcl (Venlafaxine Hcl Er), 1 CAP PO DAILY, (Reported) Scheduled PRN Hydrocodone Bit/Acetaminophen (Hydrocodon-Acetaminophen 5-325), 1-2 TAB PO Q4H PRN for pain, (Reported) Hydroxyzine Hcl* (Atarax*), 1-2 TAB PO HS PRN for insomnia, (Reported) Ondansetron 8mg ODT (Ondansetron Odt), 1 TAB PO TID PRN for nausea/vomiting, (Reported) Sumatriptan Succinate (Sumatriptan Succinate), 6 MG SQ DAILY PRN for headache, (Reported) Miscellaneous Medications Nitroglycerin (Nitroglycerin), (Reported) Past Medical History Past Medical History: Migraine, Seizures, Asthma, Chronic Pain, *PSYCH*, Anxiety, Bipolar, Depression Past Surgical History: cholecystectomy, tubal ligation Smoking Status: Current every day smoker Alcohol Use: None Drug Use: none Lives with: Spouse Lives In: Home Occupation: unemployed Review of Systems Constitutional: Denies: chills, fever, weakness Eyes: Denies: pain, blurred vision ENT: Denies: ear pain, nose pain, throat pain, mouth pain Respiratory: Denies: cough, shortness of breath Cardiovascular: Denies: chest pain, palpitations Gastrointestinal: Denies: abdominal pain, nausea, vomiting Genitourinary: Denies: burning, dysuria Female Genitalia: Denies: vaginal discharge, pelvic pain Neurological: Denies: headache, dizziness Musculoskeletal: Denies: pain, swelling Integumentary: Denies: rash, lesions Allergic/Immunologic: Denies: hives, itching Hematologic/Lymphatic: Denies: no symptoms reported Psychiatric: Denies: depression, anxiety Physical Exam Vital Signs: Temperature: 98.7, Source: Oral, Heart Rate: 80, Respiratory Rate: 16, BP: 131/77, Pulse Oximetry: 95, Weight: 94.100 Oxygen Flow Rate: 0 Physical Exam General: Awake and Alert, no acute distress. HEENT: Conjunctiva pink, Sclera clear, Mucus Membranes moist. Neck: Supple without masses and tenderness. Resp: Unlabored. Lungs clear to auscultation bilaterally. Heart: Regular Rate and rhythm, normal S1 and S2 without murmur, rub or gallop. Abdomen: On examination, the patient's abdomen is soft, nondistended, mild epigastric tenderness to palpation without guarding and without rebound tend erness. She has no other tenderness to palpation on exam. Extremities: No cyanosis,clubbing or edema. Skin: Warm and Dry. Progress Results/Orders Results/Orders Completed Orders - SHEILA WALDROP Ondansetron Disint. Tablet (Zofran Odt T (04/13/25 13:30) Medications Received in ER Medications (Trade) Dose Ordered Sig/Batool Route PRN Reason Start Time Stop Time Status Last Admin Dose Admin (Zofran ODT tablet) 4 mg ONCE ONCE PO 04/13/25 13:30 04/13/25 13:31 DC 04/13/25 13:31 4 MG Vital Signs 04/13/25 04/13/25 04/13/25 12:03 12:52 13:33 Temp 98.7 98.7 Pulse 104 80 Resp 16 16 16 B/P (MAP) 143/86 131/77 (95) Pulse Ox 98 95 O2 Flow Rate 0 0 Laboratory Tests Test 04/13/25 12:08 04/13/25 12:20 Urine Specimen Description Cln catch midstream Urine Color Yellow Urine Clarity Slightly cloudy Urine pH 6.0 Urine Specific Sun 1.025 Urine Protein Negative Urine Glucose (UA) Negative Urine Ketones Negative Urine Occult Blood Negative Urine Nitrite Negative Urine Bilirubin Negative Urine Urobilinogen 0.2 Urine Leukocyte Esterase Negative Urine RBC 0-2 Urine WBC 0-4 Urine Squamous Epithelial Cells Many Urine Amorphous Urates 1+ Urine Bacteria Few Urine Mucus Few Urine Culture Indicated Not ind Volume Urine Centrifuged 10 ml Urine HCG, Qualitative Negative Urine Comment White Blood Count 11.5 H Red Blood Count 4.80 Hemoglobin 14.0 Hematocrit 43.0 Mean Corpuscular Volume 89.6 Mean Corpuscular Hemoglobin 29.1 Mean Corpuscular Hemoglobin Concent 32.5 L Red Cell Distribution Width 13.2 Platelet Count 395 Mean Platelet Volume 8.3 Neutrophils (%) (Auto) 61.6 Lymphocytes (%) (Auto) 28.3 Monocytes (%) (Auto) 6.5 Eosinophils (%) (Auto) 2.9 Basophils (%) (Auto) 0.7 Neutrophils # (Auto) 7.1 Lymphocytes # (Auto) 3.3 Monocytes # (Auto) 0.7 Eosinophils # (Auto) 0.3 Basophils # (Auto) 0.1 CBC Comment Sodium Level 142 Potassium Level 4.0 Chloride Level 109 H Carbon Dioxide Level 21.2 L Anion Gap 12 Blood Urea Nitrogen 6 L Creatinine 0.65 Estimated GFR/1.73 m2 > 90 BUN/Creatinine Ratio 9.2 L Glucose Level 109 H Calcium Level 8.6 Total Bilirubin 0.2 Aspartate Amino Transf (AST/SGOT) 10 Alanine Aminotransferase (ALT/SGPT) 30 Alkaline Phosphatase 155 H Total Protein 7.0 Albumin 3.6 Globulin 3.4 Albumin/Globulin Ratio 1.1 Lipase 36 Chemistry Comments Medical Decision Making Findings Patient is seen today with complaints of four days of nausea vomiting and diarrhea. Patient states it 1st she thought she might have had some food poisoning but states he nausea and vomiting and diarrhea has persisted and she has been having trouble keeping down her medications as well as any liquids or solids. Patient admits to some epigastric discomfort but states she has had a previous cholecystectomy. Patient denies any blood in her vomit or stool or urine currently. She denies any fevers or chills currently. She has no other concern or complaint at this time. Patient was given Compazine 10 mg IV, 1 L of normal saline IV, Bentyl 20 mg by mouth. Patient states she is feeling much better now and would like to be discharged home with prescription medications for nausea and diarrhea and stomach spasm. Patient is sent home with prescription for Bentyl, Zofran ODT, and loperamide to be taken as prescribed. Patient will follow up with primary c are in 2-5 days if no better as needed sooner. Patient will return to ED with any worsening, concerning or changing symptoms. Shared Decision-making utilized today. Departure Disposition: 01 HOME / SELF CARE / HOMELESS Impression: Primary Impression: Acute gastroenteritis Additional Impression: Viral gastroenteritis Condition: Improved Discharge Instructions: Viral Gastroenteritis, Adult, [id number] Additional Instructions: Patient was given Compazine 10 mg IV, 1 L of normal saline IV, Bentyl 20 mg by mouth. Patient states she is feeling much better now and would like to be discharged home with prescription medications for nausea and diarrhea and stomach spasm. Patient is sent home with prescription for Bentyl, Zofran ODT, and loperamide to be taken as prescribed. Patient will follow up with primary care in 2-5 days if no better as needed sooner. Patient will return to ED with any worsening, concerning or changing symptoms. Shared Decision-making utilized today. Referrals: NO PRIMARY CARE PROVIDER (PCP) Prescriptions Loperamide Hcl (Loperamide) 2 Mg Capsule 2 CAP PO Q6H for loose stool for 5 Days, #40 CAP 0 Refills Prov: SHEILA WALDROP 04/13/25 Dicyclomine HCl (Dicyclomine HCl) 20 Mg Tablet 1 TAB PO Q6H for irritable bowel symptoms for 30 Days, #120 TAB 0 Refills Prov: SHEILA WALDROP 04/13/25 ONDANSETRON ODT 4mg tablet (ONDANSETRON ODT) 4 Mg Tab.rapdis 8 MG PO BID for 7 Days, #28 TAB Prov: SHEILA WALDROP 04/13/25 Signature Scribe Signature: No scribe Attestation: No scribe SHEILA WALDROP April 13, 2025 14:48
[2025-04-13] MEDS: proCHLORperazine 10 MG/2 ml inj IV ONE (15:37)
[2025-04-13] MEDS: normal saline 1000ML IV soln IVB ONE (15:37)
[2025-04-13] MEDS: dicyclomine 10 MG capsule PO STA (15:37)
[2025-04-13] MEDS: ketorolac trometh 30MG/ML vial 30 MG/ML VIAL IV ONE (15:38)
[2025-04-13] MEDS: acetaminophen 1,000mg/100ml IV 100 ML IV STA (15:39)
[2025-04-13] MEDS ORDERED: ONDA-243 PO (17:23)
[2025-04-13] MEDS ORDERED: DICY20TA17 PO (17:23)
[2025-04-13] MEDS ORDERED: LOPE2CAP PO (17:23)
[2025-04-13 17:52] VITALS: BP 127/86; PULSE 79; RESP 16; TEMP 98.2; O2SAT 94
== END 2025-04-13 17:54 | disposition home or self-care (01) ==
LOC: ER 11:54
DX: A08.4 Viral intestinal infection, unspecified (principal); F31.9 Bipolar disorder, unspecified; J45.909 Unspecified asthma, uncomplicated; F41.9 Anxiety disorder, unspecified; F17.200 Nicotine dependence, unspecified, uncomplicated; Z88.0 Allergy status to penicillin; Z88.2 Allergy status to sulfonamides; Z88.8 Allergy status to other drugs, medicaments and biological substances; Z98.51 Tubal ligation status
CPT/HCPCS: 36415; 80053; 81001; 81025; 83605; 83690; 84145; 85025; 96365; 96375; 99284; J0131; J0780; J1885; J7030

== ENCOUNTER 2025-07-22 14:45 | Emergency (ER) | payer OTHER, MEDICAID ==
[~2025-07-22] VITALS: Ht 162.6 cm; Wt 93.6 kg
[~2025-07-22 14:45] MED LIST changes: +DICY20TA17 PO; +LOPE2CAP PO; +ONDA-243 PO
--- NOTE | 2025-07-22 16:47 | Physician Documentation ---
History of Present Illness ~ Chief Complaint: Blurred Vision Stated Complaint: MULTIPLE MED COMPLAINTS Time Seen by MD: 18:09 Primary Medical Doctor: DR. DELMY GRACIA This is a 45-year-old female who presents with feeling of dizziness for the past five months, patient reports recently experienced increased blurred vision, nausea, fatigue, and muscle aches. Patient reports that she was at a primary care/urgent care visit today and experienced severe dizziness blurred vision while having visual acuity checked today. Chief Complaint: Dizziness, blurred vision Caveat: None Independent Historians: None History of Present Illness: Patient is a 45-year-old woman that complains of dizziness that she describes as lightheadedness. She 1st experienced this when coming out of her surgery in February this year after having an ACL repair. Since then she has been having intermittent dizziness that occurs randomly whether at rest, standing or walking. She has not noticed any alleviating or exacerbating factors. Patient states that her dizziness has becoming more frequent and more severe. Patient went to urgent care a week ago Saturday and was seen again in urgent care today and referred here. Patient states that when she tried doing the eye chart earlier today that her dizziness got worse. Patient says that she has a headache but states that her eyes her. She thinks it is because she is trying to focus. Patient denies chest pain. No shortness a breath. Patient has had intermittent diarrhea for a couple of months. Patient denies any fever. Patient denies any other associated symptoms. Patient states that she has been drinking a lot of water because she thought maybe it was because she was dehydrated. Patient denies any hearing loss, no tinnitus, no ear pain, no diplopia Review of systems: All systems were reviewed and are negative except for what is indicated in the history of present illness. Past Medical History: Depression, anxiety, bipolar illness, chronic nausea, tachycardia Past Surgical History: Right ACL repair February 2025 Social History: Tobacco use, denies alcohol use or other drug use Medications: Reviewed as documented Nursing Notes Allergies: Reviewed as documented in Nursing Notes Medication Reconciliation Allergies: Coded Allergies: Penicillins (Verified Allergy, Severe, seizures, 07/22/25) Sulfa (Sulfonamide Antibiotics) (Verified Allergy, Mild, rash, 07/22/25) nirmatrelvir (Verified Allergy, Unknown, ITCHING, 07/22/25) ritonavir (Verified Allergy, Unknown, ITCHING, 07/22/25) gabapentin (Unverified Adverse Reaction, Unknown, 07/22/25) Uncoded Allergies: TAPE (Allergy, Unknown, 11/12/18) Scheduled Baclofen (Baclofen), 1 TAB PO BID, (Reported) Carbamazepine (Carbamazepine), 2 TAB PO BID, (Reported) Dicyclomine HCl (Dicyclomine HCl), 1 TAB PO Q6H Gabapentin (Neurontin), 1 CAP PO Q8H Guanfacine Hcl (Guanfacine Hcl), 2 TAB PO HS, (Reported) Loperamide Hcl (Loperamide), 2 CAP PO Q6H Lorazepam (Ativan), 1 MG PO QID, (Reported) Lovastatin (Lovastatin), 1 TAB PO HS, (Reported) Meclizine HCl (Meclizine HCl), 1 TAB PO QID ONDANSETRON ODT 4mg tablet (Ondansetron Odt), 8 MG PO BID Oxybutynin Chloride (Oxybutynin Chloride), 1 TAB PO BID, (Reported) Pantoprazole Sodium (Protonix), 1 TAB PO BID, (Reported) Propranolol Hcl (Propranolol Hcl), 1 CAP PO DAILY, (Reported) Quetiapine Fumarate (Seroquel), 1 TAB PO HS, (Reported) Sennosides (Jennifer-Mirella), 1 TAB PO HS, (Reported) Sucralfate (Sucralfate), 1 TAB PO QID, (Reported) Venlafaxine Hcl (Venlafaxine Hcl Er), 1 CAP PO DAILY, (Reported) Scheduled PRN Hydrocodone Bit/Acetaminophen (Hydrocodon-Acetaminophen 5-325), 1-2 TAB PO Q4H PRN for pain, (Reported) Hydroxyzine Hcl* (Atarax*), 1-2 TAB PO HS PRN for insomnia, (Reported) Ondansetron 8mg ODT (Ondansetron Odt), 1 TAB PO TID PRN for nausea/vomiting, (Reported) Sumatriptan Succinate (Sumatriptan Succinate), 6 MG SQ DAILY PRN for headache, (Reported) Miscellaneous Medications Nitroglycerin (Nitroglycerin), (Reported) Past Medical History Past Medical History: Migraine, Seizures, Asthma, Chronic Pain, *PSYCH*, Anxiety, Bipolar, Depression Past Surgical History: cholecystectomy, tubal ligation Alcohol Use: None Drug Use: none Lives with: Spouse Lives In: Home Occupation: unemployed Review of Systems All Other Systems at this time: Reviewed and Negative ROS As stated above in the HPI, otherwise all systems are reviewed and negative. Patient denies any other acute symptoms other than above. All other systems are negative Physical Exam Vital Signs: RN Vital Signs have been reviewed: Yes, Temperature: 97.9, Source: Temporal, Heart Rate: 79, Respiratory Rate: 18, BP: 155/76, Pulse Oximetry: 97, Weight: 93.640 Oxygen Flow Rate: 0 Pulse Oximetry Reflects: adequate oxygenation General Appearance VITALS: Reviewed and as above. GENERAL: Alert, nontoxic appearing, no apparent distress. HEENT: RESPIRATORY: No increased work of breathing, no respiratory distress, speaking in full clear sentences CHEST: CV: BACK: GI: MUSCULOSKELETAL: SKIN: NEURO: Moving all extremities equally, no facial droop, walking with steady gait PSYCH: General Appearance: Mild distress HEENT: Normal OP, moist oral mucosa, PERRL, EOMI Neck: supple, normal ROM, trachea midline Pulmonary: No respiratory distress, CTA, BS equal Cardiac: RRR, no murmur, rub or gallop, GI: nondistended, soft, nontender, normal bowel sounds, no guarding, no rebound Extremities: normal ROM, no swelling, non-tender Skin: intact, dry, warm, no rashes Neuro: AAOx3, speech is clear, no focal motor weakness Psych: normal affect, good eye contact, no apparent hallucination, normal speech Progress Results/Orders Results/Orders Orders - DARIO SLATER MD Ct Head (07/22/25 18:50) Chest,Single View (07/22/25 18:38) Meclizine Tablets (Antivert Tablet) (07/22/25 20:50) Completed Orders - DARIO SLATER MD Ct Head (07/22/25 18:50) Chest,Single View (07/22/25 18:38) Vital Signs 07/22/25 07/22/25 07/22/25 07/22/25 14:56 17:39 20:07 20:11 Temp 97.9 Pulse 79 74 Resp 18 12 16 B/P (MAP) 155/76 127/78 (94) Pulse Ox 97 98 O2 Flow Rate 0 0 Laboratory Tests Test 07/22/25 17:25 White Blood Count 14.3 H Red Blood Count 4.99 Hemoglobin 15.0 Hematocrit 44.4 Mean Corpuscular Volume 88.9 Mean Corpuscular Hemoglobin 30.0 Mean Corpuscular Hemoglobin Concent 33.7 Red Cell Distribution Width 14.1 Platelet Count 417 Mean Platelet Volume 7.8 Neutrophils (%) (Auto) 67.4 Lymphocytes (%) (Auto) 23.4 Monocytes (%) (Auto) 7.0 Eosinophils (%) (Auto) 1.6 Basophils (%) (Auto) 0.6 Neutrophils # (Auto) 9.6 H Lymphocytes # (Auto) 3.3 Monocytes # (Auto) 1.0 H Eosinophils # (Auto) 0.2 Basophils # (Auto) 0.1 CBC Comment Sodium Level 137 Potassium Level 4.1 Chloride Level 103 Carbon Dioxide Level 25.0 Anion Gap 9 Blood Urea Nitrogen 4 L Creatinine 0.80 Estimated GFR/1.73 m2 78 BUN/Creatinine Ratio 5.0 L Glucose Level 106 H Calcium Level 9.2 Albumin 4.0 Chemistry Comments Medical Decision Making Additional info obtained from: old records Findings Differential diagnosis includes but is not limited to: Posterior stroke, vertigo, orthostasis, POTS, dehydration, electrolyte abnormalities, mild the department's syndrome, vestibular dysfunction, labyrinthitis, Meniere's EKG independent interpretation: Performed at 5:54 p.m.. Normal sinus rhythm, heart rate 70, normal axis, low voltage, normal ST segments, Q-waves in V1 through V2 Chest x-ray, single view, indication: Dizziness Independent interpretation: Lungs are clear, normal mediastinum, normal cardiac silhouette. Head CT without IV contrast, indication: Head injury Impression: No evidence of acute intracranial abnormality. Laboratory data independent interpretation: CBC: Leukocytosis 14.3 BMP: Unremarkable Emergency department course/medical decision-making: Patient presents with vague description of dizziness has been intermittent since February after her surgery. Patient's workup here is unremarkable. Head CT is negative. Do not suspect posterior stroke. Patient really does not appear to describe benign positional vertigo. Symptoms seemed to come and go however I will treat her with meclizine for possible vertigo of unknown cause. Patient is instructed to follow up with her primary care doctor for referral to ENT. Is also instructed to possibly ever primary care doctor referred to Ophthalmology. Patient's neurological exam is unremarkable. Test results treatment plan and all of the above reviewed with the patient. Patient is stable for discharge. Patient has a mild leukocytosis. However the patient does not exhibit any other symptoms to suggest an infection. No antibiotics at this time. Patient is instructed to return if symptoms worsen. Patient is afebrile and hemodynam ically stable. Departure Time of Disposition: 20:41 Disposition: HOME / SELF CARE / HOMELESS Impression: Primary Impression: Dizziness Condition: Stable Discharge Instructions: Dizziness, [id number], Blurred Vision, Adult, Vertigo Additional Instructions: THE CAUSE FOR YOUR SYMPTOMS ARE UNKNOWN. YOU ARE BEING PRESCRIBED MECLIZINE TO SEE IF THIS MAY HELP WITH YOUR DIZZINESS. TAKE DIRECTED. FOLLOW UP WITH YOUR DOCTOR TOMORROW FOR REFERRAL TO ENT AND POSSIBLY OPHTHALMOLOGY. Prescriptions Meclizine HCl (Meclizine HCl) 25 Mg Tablet 1 TAB PO QID, #40 TAB Prov: DARIO SLATER MD 07/22/25 Education Educated: Patient Educated regarding: diagnosis, treatment, need for follow up Signature Scribe Signature: No scribe Attestation: No scribe JAC CLEANING Jul 22, 2025 16:47 DARIO SLATER MD Jul 22, 2025 18:38
[2025-07-22 17:41] LABS: MEAN PLATELET VOLUME 7.8 FL (7.4-10.4); RED CELL DISTRIBUTION WIDTH 14.1 % (11.5-14.5)
[2025-07-22 17:50] LABS: CREATININE 0.80 MG/DL (0.40-0.90); TOTAL CARBON DIOXIDE 25.0 MMOL/L (24-32); eCRCL 77 ML/MIN; eGFR 78 ML/MIN
--- NOTE | 2025-07-22 17:55 | ELECTROCARDIOGRAPH REPORT ---
[facility] Test Date: 2025-07-22 Test Time: 17:54:31 Pat Name: LAUREN YOUNG Department: EMERGENCY ROOM Room: Gender: F Chain Carrier: AARTI : 1980 Requested By: NAEEM RIVERA Order Number: [id number] Reading MD: Measurements Intervals [place] Rate: 70 P: 49 [place]: 144 QRS: 17 QRSD: 93 T: 46 QT: 390 QTc: 421 Interpretive Statements Sinus rhythm Low voltage, precordial leads Please click the below link to view image of tracing.
--- NOTE | 2025-07-22 19:02 | RADIOLOGY REPORT ---
CLINICAL HISTORY: dizziness TECHNIQUE: Single view of the chest was obtained. COMPARISON: DI CHEST,SINGLE VIEW on DOS: 09/07/24, DI CHEST,SINGLE VIEW on DOS: 01/14/24, CT CTA CHEST PE on DOS: 01/07/24, DI CHEST,SINGLE VIEW on DOS: 01/07/24, CHEST,SINGLE VIEW on DOS: 03/13/21 FINDINGS: The heart size and pulmonary vasculature are normal. The lungs are clear. IMPRESSION: NO ACUTE CARDIOPULMONARY PROCESS.
--- NOTE | 2025-07-22 19:09 | RADIOLOGY REPORT ---
Procedure: CT CT HEAD [facility] Study Date and Requested Time: 07/22/2025 06:45 PM History: dizziness Comparison: None Dose: CTDI: 40.9 mGy DLP: 660.78 mGycm Technique: Multiplanar images obtained through the brain without intravenous contrast. Findings: Normal brain volume and formation. No hemorrhages, masses, mass effect, midline shift, herniation or cytotoxic edema following a large v ascular territory. No intra-axial or extra-axial fluid collections. No evidence of hydrocephalus. The basal cisterns are patent. The pituitary gland, sella and parasellar regions are unremarkable. The cerebellar tonsils are in nor mal position. The cerebellum is unremarkable. The orbits and globes are unremarkable. Mild mucoperiosteal thickening of the right sphenoid sinus. Otherwise, the paranasal sinuses and mastoids are clear. There are no worrisome calvarial lesions. Impression: No evidence of acute intracranial abnormality.
[2025-07-22] MEDS ORDERED: MECL-302 PO (20:42)
[2025-07-22 21:26] VITALS: TEMP 97.9
[2025-07-22 22:41] VITALS: BP 128/77; PULSE 76; RESP 14; O2SAT 96
== END 2025-07-22 22:43 | disposition home or self-care (01) ==
LOC: ER 14:46
DX: R42 Dizziness and giddiness (principal); F31.9 Bipolar disorder, unspecified; F41.9 Anxiety disorder, unspecified; J45.909 Unspecified asthma, uncomplicated; G89.29 Other chronic pain; Z88.0 Allergy status to penicillin; Z88.2 Allergy status to sulfonamides; Z88.8 Allergy status to other drugs, medicaments and biological substances; Z90.49 Acquired absence of other specified parts of digestive tract; Z98.51 Tubal ligation status
CPT/HCPCS: 36415; 70450; 71045; 80048; 85025; 93005; 99285; J8597

== ENCOUNTER 2025-08-13 12:40 | Emergency (ER) | payer OTHER, MEDICAID ==
[~2025-08-13] VITALS: Ht 162.6 cm; Wt 96.8 kg
[~2025-08-13 12:40] MED LIST changes: +MECL-302 PO
[2025-08-13 12:56] VITALS: TEMP 98.3
[2025-08-13 13:46] LABS: MEAN PLATELET VOLUME 8.0 FL (7.4-10.4); RED CELL DISTRIBUTION WIDTH 14.2 % (11.5-14.5)
[2025-08-13 13:50] LABS: LEUKOCYTE ESTERASE ,URINE NEGATIVE (Neg); NITRITES, URINE NEGATIVE (Neg); OCCULT BLOOD,URINE NEGATIVE (Neg); URINE HCG NEGATIVE (NEG)
[2025-08-13 13:55] LABS: UA COLLECTION TYPE CLN CATCH MIDSTREAM
[2025-08-13 14:02] LABS: CREATININE 0.59 MG/DL (0.40-0.90); TOTAL CARBON DIOXIDE 24.3 MMOL/L (24-32); eCRCL 104 ML/MIN; eGFR > 90 ML/MIN
[2025-08-13] MEDS: ketorolac trometh 30MG/ML vial 30 MG/ML VIAL IV ONE (15:07)
[2025-08-13] MEDS: normal saline 1000ml 1,000 ML IV ONE (15:08)
--- NOTE | 2025-08-13 15:31 | Physician Documentation ---
History of Present Illness ~ Chief Complaint: Dizziness Stated Complaint: HEADACHE/DIZZINESS Time Seen by MD: 13:17 Primary Medical Doctor: DR. BROCK Source: patient Mode of Arrival: EMS Exam Limitations: no limitations HPI Mrs. Fox is a 45 y/o female who presents to the ED with c/o dizziness. She states that she has had this off and on since having her ACL repaired on Feb. She states that she has been told many different reasons as to why it has persisted (anesthesia, narcotics, dehydration, etc). She also states that she has chronic migraine headaches. Denies recent head trauma. No focal weakness. No new numbness/tingling. No chest pain/pressure or discomfort. No new neck pain or stiffness. No fever/chills. No rash or skin lesions. Medication Reconciliation Allergies: Coded Allergies: Penicillins (Verified Allergy, Severe, seizures, 08/13/25) Sulfa (Sulfonamide Antibiotics) (Verified Allergy, Mild, rash, 08/13/25) nirmatrelvir (Verified Allergy, Unknown, ITCHING, 08/13/25) ritonavir (Verified Allergy, Unknown, ITCHING, 08/13/25) gabapentin (Unverified Adverse Reaction, Unknown, 08/13/25) Uncoded Allergies: TAPE (Allergy, Unknown, 11/12/18) Scheduled Baclofen (Baclofen), 1 TAB PO BID, (Reported) Carbamazepine (Carbamazepine), 2 TAB PO BID, (Reported) Dicyclomine HCl (Dicyclomine HCl), 1 TAB PO Q6H Gabapentin (Neurontin), 1 CAP PO Q8H Guanfacine Hcl (Guanfacine Hcl), 2 TAB PO HS, (Reported) Loperamide Hcl (Loperamide), 2 CAP PO Q6H Lorazepam (Ativan), 1 MG PO QID, (Reported) Lovastatin (Lovastatin), 1 TAB PO HS, (Reported) Meclizine HCl (Meclizine HCl), 1 TAB PO QID ONDANSETRON ODT 4mg tablet (Ondansetron Odt), 8 MG PO BID Oxybutynin Chloride (Oxybutynin Chloride), 1 TAB PO BID, (Reported) Pantoprazole Sodium (Protonix), 1 TAB PO BID, (Reported) Propranolol Hcl (Propranolol Hcl), 1 CAP PO DAILY, (Reported) Quetiapine Fumarate (Seroquel), 1 TAB PO HS, (Reported) Sennosides (Jennifer-Mirella), 1 TAB PO HS, (Reported) Sucralfate (Sucralfate), 1 TAB PO QID, (Reported) Venlafaxine Hcl (Venlafaxine Hcl Er), 1 CAP PO DAILY, (Reported) Scheduled PRN Hydrocodone Bit/Acetaminophen (Hydrocodon-Acetaminophen 5-325), 1-2 TAB PO Q4H PRN for pain, (Reported) Hydroxyzine Hcl* (Atarax*), 1-2 TAB PO HS PRN for insomnia, (Reported) Ondansetron 8mg ODT (Ondansetron Odt), 1 TAB PO TID PRN for nausea/vomiting, (Reported) Sumatriptan Succinate (Sumatriptan Succinate), 6 MG SQ DAILY PRN for headache, (Reported) Miscellaneous Medications Nitroglycerin (Nitroglycerin), (Reported) Past Medical History Past Medical History: Migraine, Seizures, Asthma, Chronic Pain, *PSYCH*, Anxiety, Bipolar, Depression Past Surgical History: cholecystectomy, tubal ligation Alcohol Use: None Drug Use: none Lives with: Spouse Lives In: Home Occupation: unemployed Review of Systems ROS As stated above in the HPI, otherwise all systems are reviewed and negative. Physical Exam Vital Signs: RN Vital Signs have been reviewed: Yes, Temperature: 98.3, Source: Oral, Heart Rate: 79, Respiratory Rate: 16, BP: 116/69, Pulse Oximetry: 97, Weight: 96.800 Oxygen Flow Rate: 0 Physical Exam VITALS: Reviewed and as above. GENERAL: Alert, no apparent distress. HEENT: Normocephalic, atraumatic, PERRL, EOMI, dry mucosa, no erythema RESPIRATORY: Lungs clear, normal breath sounds, no respiratory distress. CHEST: No accessory muscle use, no retractions CV: Regular rate, rhythm, no edema, no murmur, No: JVD GI: Soft, tenderness to the lower abdomen with palpation., bowels sounds present, no rebound, guarding, or rigidity BACK: No CVA tenderness, or swelling MUSCULOSKELETAL No deformities, no edema SKIN: Warm and dry, no rash NEURO: Oriented x4, No motor or sensory deficit PSYCH: Normal mood and affect, no agitation Progress Results/Orders Results/Orders Completed Orders - ENRICO RODAS MD Urinalysis, Cult If Indicated (08/13/25 13:04) Hcg, Ur Ql (08/13/25 13:04) Cbc/Diff (08/13/25 13:04) BMP (08/13/25 13:04) Lipase (08/13/25 13:04) CMP (08/13/25 13:04) Normal Saline 1000ml (0.9% Sodium Chlori (08/13/25 14:10) Prochlorperazine Inj (Compazine Inj) (08/13/25 14:10) Ketorolac Trometh 30mg/Ml Vial (Toradol (08/13/25 14:10) Diazepam Tablet (Valium Tablet) (08/13/25 14:10) Medications Received in ER Medications (Trade) Dose Ordered Sig/Batool Route PRN Reason Start Time Stop Time Status Last Admin Dose Admin Sodium Chloride 1,000 ml @ 1,000 mls/hr ONCE ONCE IV 08/13/25 14:10 08/13/25 15:09 DC 08/13/25 15:08 1,000 MLS/HR (Compazine inj) 10 mg ONCE ONCE IV 08/13/25 14:10 08/13/25 14:11 DC 08/13/25 15:08 10 MG (Toradol inj. 30mg/ml) 15 mg ONCE ONCE IV 08/13/25 14:10 08/13/25 14:11 DC 08/13/25 15:07 15 MG (Valium tablet) 5 mg ONCE ONCE PO 08/13/25 14:10 08/13/25 14:11 DC 08/13/25 15:08 5 MG Vital Signs 08/13/25 08/13/25 08/13/25 08/13/25 12:56 13:06 15:07 15:08 Temp 98.3 Pulse 79 Resp 16 16 16 B/P (MAP) 116/69 Pulse Ox 97 O2 Flow Rate 0 08/13/25 15:25 Pulse 70 Resp 16 B/P (MAP) 128/75 (92) Pulse Ox 96 O2 Flow Rate 0 Laboratory Tests Test 08/13/25 13:15 08/13/25 13:30 White Blood Count 12.6 H Red Blood Count 4.60 Hemoglobin 13.6 Hematocrit 41.0 Mean Corpuscular Volume 89.3 Mean Corpuscular Hemoglobin 29.5 Mean Corpuscular Hemoglobin Concent 33.1 Red Cell Distribution Width 14.2 Platelet Count 405 Mean Platelet Volume 8.0 Neutrophils (%) (Auto) 62.3 Lymphocytes (%) (Auto) 26.8 Monocytes (%) (Auto) 7.9 Eosinophils (%) (Auto) 2.2 Basophils (%) (Auto) 0.8 Neutrophils # (Auto) 7.9 H Lymphocytes # (Auto) 3.4 Monocytes # (Auto) 1.0 H Eosinophils # (Auto) 0.3 Basophils # (Auto) 0.1 CBC Comment Sodium Level 142 Potassium Level 4.0 Chloride Level 108 H Carbon Dioxide Level 24.3 Anion Gap 10 Blood Urea Nitrogen 11 Creatinine 0.59 Estimated GFR/1.73 m2 > 90 BUN/Creatinine Ratio 18.6 Glucose Level 88 Calcium Level 8.6 Total Bilirubin 0.2 Aspartate Amino Transf (AST/SGOT) 17 Alanine Aminotransferase (ALT/SGPT) 19 Alkaline Phosphatase 131 H Total Protein 6.9 Albumin 3.3 L Globulin 3.6 Albumin/Globulin Ratio 0.9 L Lipase 35 Chemistry Comments Urine Specimen Description Cln catch midstream Urine Color Straw Urine Clarity Clear Urine pH 6.0 Urine Specific [place] 1.010 Urine Protein Negative Urine Glucose (UA) Negative Urine Ketones Negative Urine Occult Blood Negative Urine Nitrite Negative Urine Bilirubin Negative Urine Urobilinogen 0.2 Urine Leukocyte Esterase Negative Urine Culture Indicated Not ind Volume Urine Centrifuged 10 ml Urine HCG, Qualitative Negative Urine Comment Departure Disposition: HOME / SELF CARE / HOMELESS Impression: Primary Impression: Dizziness Condition: Improved Discharge Instructions: Dizziness Referrals: NO PRIMARY CARE PROVIDER (PCP) Education Educated: Patient Educated regarding: diagnosis, treatment Additional Comment Please follow up with her primary care provider. Please return to the emergency department with any worsening or recurrent symptoms or any additional concerning symptoms that we discussed here today. Signature Scribe Signature: N/A Attestation: N/A ENRICO RODAS MD Aug 13, 2025 15:31
[2025-08-13 16:35] VITALS: BP 121/55; PULSE 86; RESP 15; O2SAT 96
== END 2025-08-13 16:37 | disposition home or self-care (01) ==
LOC: ER 12:40
DX: R42 Dizziness and giddiness (principal); E86.0 Dehydration; F31.9 Bipolar disorder, unspecified; F41.9 Anxiety disorder, unspecified; G43.909 Migraine, unspecified, not intractable, without status migrainosus; G89.29 Other chronic pain; J45.909 Unspecified asthma, uncomplicated; Z88.0 Allergy status to penicillin; Z88.2 Allergy status to sulfonamides; Z88.5 Allergy status to narcotic agent; Z88.8 Allergy status to other drugs, medicaments and biological substances; Z90.49 Acquired absence of other specified parts of digestive tract; Z98.51 Tubal ligation status; Z79.899 Other long term (current) drug therapy; Z56.0 Unemployment, unspecified
CPT/HCPCS: 36415; 80053; 81003; 81025; 83690; 85025; 96361; 96374; 96375; 99284; J0780; J1885; J7030

== ENCOUNTER 2025-11-01 15:26 | Outpatient (CLI) | payer OTHER, MEDICAID ==
--- NOTE | 2025-11-01 17:32 | RADIOLOGY REPORT ---
EXAM: MR MRI HEAD INDICATION: VISION CHANGE,MEMORY LOSS TECHNIQUE:: Multiplanar, multisequence imaging of the brain without contrast. COMPARISON: CT CT HEAD on DOS: 07/22/25 FINDINGS: [PARENCHYMA]: No acute infarct or hemorrhage. No mass effect or herniation. No abnormal susceptibility weighted artifact. [VENTRICLES]: No hydrocephalus. [EXTRA-AXIAL SPACES]: No extra-axial fluid collections. [FLOW VOIDS]: The flow voids are intact. [EXTRA-CRANIAL STRUCTURES]: The bony structures are intact. Visualized portions of the paranasal sinuses and mastoid air cells are essentially clear. IMPRESSION: 1. No MR evidence of an acute intracranial abnormality.
== END 2025-11-01 23:59 | disposition home or self-care (01) ==
LOC: MRI02 15:26
PROVIDERS: ATTEND Nurse Practitioner Primary Care
DX: H53.9 Unspecified visual disturbance (principal); R41.3 Other amnesia
CPT/HCPCS: 70551